=== PATIENT | male | born 1980 | race Caucasian/White ===

== ENCOUNTER 2019-02-22 15:53 | Emergency (ER) | payer SELFPAY ==
[2019-02-22 15:56] VITALS: BP 170/96; PULSE 110; RESP 22; TEMP 36.9; O2SAT 97
--- NOTE | 2019-02-22 16:28 | ED.GENADUL_ITS ---
Discharge Plan Disposition Patient Disposition: HOME Condition: Good Discharge Details Chief Complaint: Sorethroat Clinical Impression: Cough, Tobacco abuse, Elevated blood pressure reading, Obesity Primary Care Provider: Corey Gomez ED Provider: Khurram Bazan Home Meds and New Rx's Prescriptions: Continued aspirin 325 MG tablet 325 mg PO DAILY RF: 0 ibuprofen 800 MG tablet 800 mg PO TID PRN PRNQty: 30 RF: 0 Discharge Instructions Instructions: How to Stop Smoking (ED) Additional Instructions: Please try to cut back and eventually quit smoking as we discussed. Your blood pressure is elevated here and will need to be followed up. Losing weight and exercising may help with your blood pressure. Care management will help you establish a new primary care physician for follow-up. Return to the emergency department if you develop chest pain, shortness of breath, other concerns. Referrals: Care Management [Provider Group] Medical Decision Making Patient with residual cough following URI. He is not febrile. His saturations are normal. His lungs are clear. He does smoke and we discussed cutting back on this because it is probably not helping at all. He does not have primary care. He is obese and is noted to have elevated blood pressure here. Will need to get him primary care and we will have case management work on this. Hopefully get him follow-up in the next month or two. Return to ED for increasing shortness of breath, chest pain, other concerns. HPI General Mode of arrival: ambulatory . Date/Time Provider Initiated Documentation: 02/22/19 16:25 . Limitations to Documentation: no limitations . Information obtained by: patient . HPI Narrative: Patient presents to ED with lingering cough following a URI. Most of his cold symptoms that happened a few weeks ago have resolved. He continues to have a cough as well as hoarseness. He denies fever, congestion, chest pain, shortness of breath. He does smoke. He does not have primary care. He was concerned that the cough was not resolving and came in. Related Data Home Medications Medication Instructions Recorded Confirmed aspirin 325 mg PO DAILY 05/02/13 07/21/16 ibuprofen 800 mg PO TID PRN PRN #30 tablet 10/14/13 02/22/19 Previous Rx's Medication Instructions Recorded ibuprofen 800 mg PO TID PRN PRN #30 tablet 10/14/13 Allergies Allergy/AdvReac Type Severity Reaction Status Date / Time coconut Allergy Severe Anaphylaxsi Uncoded 07/21/16 09:10 s shrimp Allergy Severe Cardiac Uncoded 07/21/16 09:10 Dysrythmia General Stated Complaint: Sorethroat ELIUD: 4 Review of Systems Constitutional Denies chills, Denies fever(s), Denies headache(s), Denies lethargy, Denies malaise, Denies poor appetite and Denies weakness Eyes Denies eye discharge and Denies eye pain ENT Denies otalgia, Denies facial pain, Denies headache(s), Reports hoarseness, Denies nasal congestion, Denies neck pain and Denies sore throat Cardiovascular Denies chest pain, Denies pedal edema, Denies edema and Denies dyspnea Respiratory Denies chest congestion, Reports cough and Denies dyspnea Gastrointestinal Denies abdominal pain, Denies diarrhea, Denies nausea and Denies vomiting Musculoskeletal Denies neck pain Integumentary/Breasts Denies rash Neurologic Denies headache(s), Denies paresthesias and Denies weakness [facility] Medical History Obesity (Chronic) Surgical History S/P appendectomy (Inactive) Social History Smoking/Tobacco Use Status: Current every day Tobacco Type: cigarettes Alcohol Intake: never Drug use: Never Substance use type: does not use Do you feel safe at home: Yes Do you feel safe in your relationship?: Yes Exam Const General: cooperative and comfortable Nutritional Appearance: obese Orientation: alert and oriented x3 HENMD Head: normocephalic and atraumatic Ears: TM's normal bilaterally Face and sinus: normal facial exam Mouth: oropharynx normal and moist mucous membranes Throat: posterior oropharynx normal Neck Neck: trachea midline and supple Resp Effort & Inspection: normal respiratory effort Auscultation: clear to auscultation bilaterally, no rales, no rhonchi and no wheezes Cardio Rate: regular rate Rhythm: regular rhythm Heart Sounds: S1 normal and S2 normal Neuro General: alert, oriented x3, no focal motor deficits and CN's II-XI intact bilaterally Cognition: normal cognition Speech: speech normal Course Vital Signs Temperature 98.4 F 02/22/19 15:56 Pulse 110 H 02/22/19 15:56 Respiratory Rate 22 02/22/19 15:56 Blood Pressure 170/96 H 02/22/19 15:56 Pulse Oximetry 97 02/22/19 15:56 Temperature 98.4 F 02/22/19 15:56 Temperature Source Temporal Artery Scan 02/22/19 15:56 Pulse 110 H 02/22/19 15:56 Respiratory Rate 22 02/22/19 15:56 Respiratory Effort Non-Labored 02/22/19 15:58 Blood Pressure 170/96 H 02/22/19 15:56 Blood Pressure Position Sitting 02/22/19 15:56 Pulse Oximetry 97 02/22/19 15:56 Oxygen Delivery Method Room Air 02/22/19 15:56 Oxygen Flow Rate 0 02/22/19 15:56
--- NOTE | 2019-02-23 11:13 | CMPROGNOTE_ITS ---
Care Management Progress Note 02/23-Dr. Bazan requested assistance with a PCP f/u (used to see Dr. Gomez) f/u in two weeks and to reestablish with [facility] Referral faxed to [facility] this am.
== END 2019-02-22 16:58 | disposition home or self-care (01) ==
LOC: ER 17:11
PROVIDERS: Emergency Provider Emergency Medicine; PCP Internal Medicine
DX: R05 Cough (principal); R03.0 Elevated blood-pressure reading, without diagnosis of hypertension; E66.9 Obesity, unspecified; F17.210 Nicotine dependence, cigarettes, uncomplicated
CPT/HCPCS: 99282

== ENCOUNTER 2019-05-07 00:09 | Emergency (ER) | payer SELFPAY ==
[2019-05-07 00:20] VITALS: BP 178/108; PULSE 119; RESP 20; TEMP 37; O2SAT 95
--- NOTE | 2019-05-07 00:29 | W.ED.GENAD ---
Discharge Plan Disposition Patient Disposition: HOME Condition: Good Discharge Details Chief Complaint: DentalOral Clinical Impression: Pain, dental Primary Care Provider: Argenis,Local ED Provider: Cameron Doherty Home Meds and New Rx's Prescriptions: New amoxicillin-pot clavulanate [Augmentin] 875-125 mg tablet 1 tab PO BID Qty: 14 RF: 0 No Action aspirin 325 MG tablet 325 mg PO DAILY RF: 0 ibuprofen 800 MG tablet 800 mg PO TID PRN PRNQty: 30 RF: 0 Discharge Instructions Instructions: Toothache (ED) Additional Instructions: Please take 1000 mg of Tylenol every 6 hours and up to 800 mg of ibuprofen every 6 hours. Please follow-up closely with your dentist. Take the antibiotic as directed. If you notice any worsening of your symptoms, or any new symptoms such as vomiting, diarrhea, fever, chills, shortness of breath, chest pain, numbness, weakness, or fainting , please return immediately to the emergency department for reevaluation. Please follow up with your primary care provider as soon as possible for reassessment and reevaluation. As always, it was a pleasure participating in your medical care today. Medical Decision Making This is a pleasant 38-year-old male who presents for left lower dental pain for the last few months gradually worsening over the last few days. He has not contacted a dentist. He denies fever or chills. Exam demonstrates notable dental caries, no evidence of periapical abscess. Dental block was performed, complete resolution of symptoms as noted. Patient was given his first dose of Augmentin for suspected pulpitis from mild infection. Recommend outpatient follow-up with dentistry I have extensively reviewed the treatment plan and discharge instructions with the patient. I have addressed all patient concerns at this time. The patient was made aware of what symptoms to monitor for that would warrant a return to the emergency department. Discussed the plan with the patient, they demonstrate verbal understanding and agreement with our assessment and plan at this time. Time out was taken to identify the correct patient, procedure, and site. Risks and benefits were discussed with the patient and consent was obtained. Direct pressure was held over the area prior to the procedure to reduce painful injection. 5 cc?s of Lidocaine 1% and Bupivacaine 0.25% was instilled into the left posterior inferior alveolar/mandibular angle space with a 27 gauge needle.Complete analgesia was obtained. The patient tolerated the procedure. There were no complications. HPI General Date/Time Provider Initiated Documentation: 05/07/19 00:16. HPI Narrative: This is a pleasant 38-year-old male who presents for left lower dental pain. He states that he has been going on for months, is gradually gotten worse over the last few days. He has not yet contacted his dentist. He has taken occasional NSAIDs which is only slightly improved the pain. Orajel does help the pain. He denies any fever, chills, swelling, headache or neck pain. No other complaints modifying factors. Related Data Home Medications Medication Instructions Recorded Confirmed ibuprofen 800 mg PO TID PRN PRN #30 tablet 10/14/13 05/07/19 amoxicillin-pot clavulanate 1 tab PO BID #14 tab 05/07/19 [Augmentin] Previous Rx's Medication Instructions Recorded ibuprofen 800 mg PO TID PRN PRN #30 tablet 10/14/13 amoxicillin-pot clavulanate 1 tab PO BID #14 tab 05/07/19 [Augmentin] Allergies Allergy/AdvReac Type Severity Reaction Status Date / Time coconut Allergy Severe Anaphylaxsi Uncoded 05/07/19 00:30 s shrimp Allergy Severe Cardiac Uncoded 05/07/19 00:30 Dysrythmia General Stated Complaint: DentalOral ELIUD: 4 Review of Systems Review of Systems All systems reviewed & are unremarkable except as noted in HPI and below [facility] Social History Smoking/Tobacco Use Status: Current every day Tobacco Type: cigarettes Alcohol Intake: never Drug use: Never Substance use type: does not use Do you feel safe at home: Yes Do you feel safe in your relationship?: Yes Exam Narrative Exam Narrative: 1.Const: Well-nourished, Well-developed, appearing stated age 2.Eyes: PERRL, no conjunctival injection, and symmetrical lids. 3.ENT: Atraumatic external nose and ears. Moist MM. Neck: Symmetric, trachea midline, No thyromegaly. Notable dental caries throughout, left lower teeth demonstrate no evidence of periapical abscess, or swelling. No evidence of Cruz's angina. 4.CVS: +S1/S2, No murmurs or gallops. Peripheral pulses 2+ and equal in all extremities. Brisk capillary refill in all extremities. 5.RESP: Unlabored respiratory effort. Clear to auscultation bilaterally. No wheezes rales or rhonchi 6.GI: Soft, Nontender/Nondistended, No hepatosplenomegaly. No guarding or rebound. 7.MSK: Normocephalic/Atraumatic, Extremities w/o deformity or ttp No cyanosis or clubbing, Normal movement of all extremities 8.Skin: Warm, Dry. No rashes or lesions. 9.Neuro: valance cutter II-XII grossly intact. Sensation grossly intact, no focal neurologic deficits. 10.Psych: (AAO) x3. Appropriate mood and affect Course Vital Signs Temperature 37 C 05/07/19 00:20 Pulse 119 H 05/07/19 00:20 Respiratory Rate 20 05/07/19 00:20 Blood Pressure 178/108 H 05/07/19 00:20 Pulse Oximetry 95 05/07/19 00:20 Temperature 37 C 05/07/19 00:20 Temperature Source Temporal Artery Scan 05/07/19 00:20 Pulse 119 H 05/07/19 00:20 Respiratory Rate 20 05/07/19 00:20 Respiratory Effort Non-Labored 05/07/19 00:20 Blood Pressure 178/108 H 05/07/19 00:20 Blood Pressure Position Sitting 05/07/19 00:20 Pulse Oximetry 95 05/07/19 00:20 Oxygen Delivery Method Room Air 05/07/19 00:20 Oxygen Flow Rate 0 05/07/19 00:20 Pain Level 10 05/07/19 00:20
--- NOTE | 2019-05-07 00:32 | ED.GENADUL_ITS ---
Discharge Plan Disposition Patient Disposition: HOME Condition: Good Discharge Details Chief Complaint: DentalOral Clinical Impression: Pain, dental Primary Care Provider: Argenis,Local ED Provider: Cameron Doherty Home Meds and New Rx's Prescriptions: New amoxicillin-pot clavulanate [Augmentin] 875-125 mg tablet 1 tab PO BID Qty: 14 RF: 0 No Action aspirin 325 MG tablet 325 mg PO DAILY RF: 0 ibuprofen 800 MG tablet 800 mg PO TID PRN PRNQty: 30 RF: 0 Discharge Instructions Instructions: Toothache (ED) Additional Instructions: Please take 1000 mg of Tylenol every 6 hours and up to 800 mg of ibuprofen every 6 hours. Please follow-up closely with your dentist. Take the antibiotic as directed. If you notice any worsening of your symptoms, or any new symptoms such as vomiting, diarrhea, fever, chills, shortness of breath, chest pain, numbness, weakness, or fainting , please return immediately to the emergency department for reevaluation. Please follow up with your primary care provider as soon as possible for reassessment and reevaluation. As always, it was a pleasure participating in your medical care today. Medical Decision Making This is a pleasant 38-year-old male who presents for left lower dental pain for the last few months gradually worsening over the last few days. He has not contacted a dentist. He denies fever or chills. Exam demonstrates notable dental caries, no evidence of periapical abscess. Dental block was performed, complete resolution of symptoms as noted. Patient was given his first dose of Augmentin for suspected pulpitis from mild infection. Recommend outpatient follow-up with dentistry I have extensively reviewed the treatment plan and discharge instructions with the patient. I have addressed all patient concerns at this time. The patient was made aware of what symptoms to monitor for that would warrant a return to the emergency department. Discussed the plan with the patient, they demonstrate verbal understanding and agreement with our assessment and plan at this time. Time out was taken to identify the correct patient, procedure, and site. Risks and benefits were discussed with the patient and consent was obtained. Direct pressure was held over the area prior to the procedure to reduce painful injection. 5 cc?s of Lidocaine 1% and Bupivacaine 0.25% was instilled into the left posterior inferior alveolar/mandibular angle space with a 27 gauge needle.Complete analgesia was obtained. The patient tolerated the procedure. There were no complications. HPI General Date/Time Provider Initiated Documentation: 05/07/19 00:16 . HPI Narrative: This is a pleasant 38-year-old male who presents for left lower dental pain. He states that he has been going on for months, is gradually gotten worse over the last few days. He has not yet contacted his dentist. He has taken occasional NSAIDs which is only slightly improved the pain. Orajel does help the pain. He denies any fever, chills, swelling, headache or neck pain. No other complaints modifying factors. Related Data Home Medications Medication Instructions Recorded Confirmed ibuprofen 800 mg PO TID PRN PRN #30 tablet 10/14/13 05/07/19 amoxicillin-pot clavulanate 1 tab PO BID #14 tab 05/07/19 [Augmentin] Previous Rx's Medication Instructions Recorded ibuprofen 800 mg PO TID PRN PRN #30 tablet 10/14/13 amoxicillin-pot clavulanate 1 tab PO BID #14 tab 05/07/19 [Augmentin] Allergies Allergy/AdvReac Type Severity Reaction Status Date / Time coconut Allergy Severe Anaphylaxsi Uncoded 05/07/19 00:30 s shrimp Allergy Severe Cardiac Uncoded 05/07/19 00:30 Dysrythmia General Stated Complaint: DentalOral ELIUD: 4 Review of Systems Review of Systems All systems reviewed & are unremarkable except as noted in HPI and below [facility] Social History Smoking/Tobacco Use Status: Current every day Tobacco Type: cigarettes Alcohol Intake: never Drug use: Never Substance use type: does not use Do you feel safe at home: Yes Do you feel safe in your relationship?: Yes Exam Narrative Exam Narrative: 1.Const: Well-nourished, Well-developed, appearing stated age 2.Eyes: PERRL, no conjunctival injection, and symmetrical lids. 3.ENT: Atraumatic external nose and ears. Moist MM. Neck: Symmetric, trachea midline, No thyromegaly. Notable dental caries throughout, left lower teeth demonstrate no evidence of periapical abscess, or swelling. No evidence of L udwig's angina. 4.CVS: +S1/S2, No murmurs or gallops. Peripheral pulses 2+ and equal in all extremities. Brisk capillary refill in all extremities. 5.RESP: Unlabored respiratory effort. Clear to auscultation bilaterally. No wheezes rales or rhonchi 6.GI: Soft, Nontender/Nondistended, No hepatosplenomegaly. No guarding or rebound. 7.MSK: Normocephalic/Atraumatic, Extremities w/o deformity or ttp No cyanosis or clubbing, Normal movement of all extremities 8.Skin: Warm, Dry. No rashes or lesions. 9.Neuro: delimer II-XII grossly intact. Sensation grossly intact, no focal neurologic deficits. 10.Psych: (AAO) x3. Appropriate mood and affect Course Vital Signs Temperature 37 C 05/07/19 00:20 Pulse 119 H 05/07/19 00:20 Respiratory Rate 20 05/07/19 00:20 Blood Pressure 178/108 H 05/07/19 00:20 Pulse Oximetry 95 05/07/19 00:20 Temperature 37 C 05/07/19 00:20 Temperature Source Temporal Artery Scan 05/07/19 00:20 Pulse 119 H 05/07/19 00:20 Respiratory Rate 20 05/07/19 00:20 Respiratory Effort Non-Labored 05/07/19 00:20 Blood Pressure 178/108 H 05/07/19 00:20 Blood Pressure Position Sitting 05/07/19 00:20 Pulse Oximetry 95 05/07/19 00:20 Oxygen Delivery Method Room Air 05/07/19 00:20 Oxygen Flow Rate 0 05/07/19 00:20 Pain Level 10 05/07/19 00:20
[2019-05-07] MEDS: Amoxicillin 875/Clav. 125 TAB PO (00:36)
[2019-05-07 00:55] VITALS: BP 166/96
== END 2019-05-07 00:42 | disposition home or self-care (01) ==
PROVIDERS: Emergency Provider Student in an Organized Health Care Education/Training Program
DX: K08.89 Other specified disorders of teeth and supporting structures (principal)
CPT/HCPCS: 99283

== ENCOUNTER 2020-05-26 08:44 | Emergency (ER) | payer OTHER, SELFPAY ==
[2020-05-26 08:53] VITALS: BP 165/92; PULSE 93; RESP 16; TEMP 36.6; O2SAT 95
--- NOTE | 2020-05-26 09:00 | ED.GENADUL_ITS ---
Discharge Plan Disposition Patient Disposition: HOME Condition: Stable Discharge Details Chief Complaint: Abd Prob Clinical Impression: Umbilical hernia Primary Care Provider: None,None ED Provider: Lulú Cee Home Meds and New Rx's Prescriptions: No Action ibuprofen 800 MG tablet 800 mg PO TID PRN PRNQty: 30 RF: 0 amoxicillin-pot clavulanate [Augmentin] 875-125 mg tablet 1 tab PO BID Qty: 14 RF: 0 Discharge Instructions Instructions: Umbilical Hernia (ED) Additional Instructions: Follow up with primary care provider in 3-5 days. Return to ED sooner if any worsening or concerns. Increase oral fluids. Please take Tylenol or Ibuprofen with food every 4-6 hours as needed for pain and swelling. Your CT showed a reduction in size of the fat-containing umbilical/periumbilical hernia which was previously seen on the CT in July 2013. There is no signs of infection or small bowel obstruction or any other abnormalities. If you continue to have pain and concerns you may follow-up with general surgery as an outpatient in 1 to 2 weeks. Referrals: Xiomara Grace MD [ [facility] STAFF PHYSICIAN] - Medical Decision Making 0906: At this time abdominal work-up ordered including CBC, CMP, lipase, magnesium, urinalysis IV and CT abdomen pelvis with IV contrast ordered to rule out incarcerated hernia versus small bowel obstruction. 0926: Patient transported to CT, labs are largely within normal limits lipase is within normal limits no leukocytosis. Glucose 118. CT ABD Pelvis, w Contrast containing umbilical/paraumbilical hernia(s) previously seen on CT dated 08/29/2013. No evidence of bowel herniation. No fluid or fat stranding within or about the hernia sac. Small right Bochdalek's hernia containing fat. IMPRESSION: 1. Body habitus may limit evaluation. 2. There has been interval reduction in size of the fat containing umbilic al/paraumbilical hernia(s) previously seen on CT dated 08/29/2013. No evidence of bowel herniation. No fluid or fat stranding within or about the hernia sac. 3. Simple renal cysts. Thank you for allowing us to participate in the care of your patient. Dictated and Authenticated by: Abdiel Toussaint MD Plan is to have patient follow-up with general surgery outpatient. No surrounding fat stranding labs are all within normal limits urinalysis all within normal limits. HPI General Mode of arrival: ambulatory . Date/Time Provider Initiated Documentation: 05/26/20 08:44 . Limitations to Documentation: no limitations . Information obtained by: patient . HPI Narrative: 39-year-old male presents to the ED with complaint of abdominal pain which is been intermittent since last ni ght. Patient describes pain as a dull pain. Does have a history of umbilical hernia repair years ago, he states that this feels similar. There is a palpable mass noted on his abdominal exam just above his umbilicus measuring approximately 3 cm x 3 cm. It is mildly tender and non-reducible initially. Also associated with dark stools which he states has been going on for the last month and a half. He denies any other complaints. No nausea vomiting diarrhea, fever, chills, chest pain or shortness of breath. He is a smoker. He does have surgical history of hernia repair and appendectomy. He denies any COVID symptoms. Patient works in a grocery store. Related Data Home Medications Medication Instructions Recorded Confirmed ibuprofen 800 mg PO TID PRN PRN #30 tablet 10/14/13 05/07/19 amoxicillin-pot clavulanate 1 tab PO BID #14 tab 05/07/19 [Augmentin] Previous Rx's Medication Instructions Recorded ibuprofen 800 mg PO TID PRN PRN #30 tablet 10/14/13 amoxicillin-pot clavulanate 1 tab PO BID #14 tab 05/07/19 [Augmentin] Allergies Allergy/AdvReac Type Severity Reaction Status Date / Time amoxicillin [From Augmentin] Allergy Intermediate vomits Verified 05/26/20 08:55 clavulanic acid Allergy Intermediate vomits Verified 05/26/20 08:55 [From Augmentin] coconut Allergy Severe Anaphylaxsi Uncoded 05/26/20 08:55 s shrimp Allergy Severe Cardiac Uncoded 05/26/20 08:55 Dysrythmia General Stated Complaint: Abd Prob ELIUD: 3 Review of Systems Narrative: Constitutional: Negative for weight loss, alert and oriented, well groomed, obese body habitus, appears comfortable. HEENT: Denies trauma, headaches, blurry vision, nasal discharge, sore throat, trouble swallowing. Chest: Denies chest pain, palpitations, irregular rhythm, hypertension. Respiratory: Denies Shortness of breath, cough, hemoptysis. GI: Denies nausea, vomiting, diarrhea, constipation. Positive focal abdominal pain. : Denies dysuria, hematuria, flank pain, rectal bleeding. Reports dark stools x1 month. Neuro: Denies dizziness, blurry vision, weakness, syncope, headache or facial numbness. Hematologic: Denies easy bruising, intolerance to heat or cold, hair loss. [facility] Medical History Obesity (Chronic) Surgical History S/P appendectomy (Inactive) Social History Smoking/Tobacco Use Status: Current every day Tobacco Type: cigarettes Tobacco: How many years used: 21 Alcohol Intake: never Drug use: Never Substance use type: does not use Do you feel safe at home: Yes Do you feel safe in your relationship?: Yes Exam Narrative Exam Narrative: Constitutional: Alert and oriented x3. Appears stated age. Obese body habitus. Head: Normocephalic, no trauma. Eyes: Pupils PERRLA, Red reflex noted, EOM's intact. Eyelids symmetrical without lesions, discharge, or swelling. ENT: Bilateral TM's WNL, External ear normal to inspection, no mastoid TTP, swelling, or erythema, Nasal turbinates WNL, no nasal discharge. Normal dentition, Posterior pharynx WNL, no exudate. Chest: RRR, Normal S1, S2, distal pulses intact. Resp: Lungs clear to auscultation bilaterally, no wheezes, rales, or rhonchi. Abdomen: Obese habitus, soft, nondistended, there is a vertical scar just adjacent to his umbilicus is healed, there is a palpable mass noted just above his umbilicus which is mildly tender to palpation. Nonreducible initially. Musculoskeletal: Normal gait, 5/5 strength to all four extremities. Skin: Does have a red raised dry patchy eczema-like rash noted to his mid forehead. Capillary refill less than 2 sec. Neurologic: Cranial nerves II-XII intact. Alert and oriented x 3. . Hematologic/Lymphatic: No ecchymosis, no lymphadenopathy. Course Vital Signs Vital signs: Vital Signs Temperature 36.6 C 05/26/20 08:53 Pulse 93 H 05/26/20 08:53 Respiratory Rate 16 05/26/20 08:53 Blood Pressure 165/92 H 05/26/20 08:53 Pulse Oximetry 95 05/26/20 08:53 Temperature 36.6 C 05/26/20 08:53 Temperature Source Tympanic 05/26/20 08:53 Pulse 93 H 05/26/20 08:53 Respiratory Rate 16 05/26/20 08:53 Respiratory Effort Non-Labored 05/26/20 08:55 Blood Pressure 165/92 H 05/26/20 08:53 Blood Pressure Position Sitting 05/26/20 08:53 Pulse Oximetry 95 05/26/20 08:53 Oxygen Delivery Method Room Air 05/26/20 08:53 Oxygen Flow Rate 0 05/26/20 08:53 Pain Level 5 05/26/20 08:53
[2020-05-26 09:11] LABS: Abs Immature Grans 0.02 k/cumm (0.0-0.09); Absolute Basophil Count 0.02 k/cumm (0.0-0.2); Absolute Eosinophil Count 0.53 k/cumm (0.0-0.7); Absolute Lymphocyte Count 1.87 k/cumm (1.2-3.4); Absolute Monocyte Count 0.97 k/cumm (0.11-0.7); Absolute Neutrophil Count 5.12 k/cumm (1.2-6.7); Basophils % 0.2; Eosinophils % 6.2; HCT 48.9 % (40.0-50.0); HGB 16.5 g/dL (13.5-17.5); Immature Grans % 0.2 %; Lymphocytes % 21.9; Mean Corp. HGB Concentration 33.7 g/dL (32.0-36.0); Mean Corpuscular Hemoglobin 29.8 pg (27.0-33.0); Mean Corpuscular Volume 88.3 fL (80-95); Mean Platelet Volume 9.4 fL (8.0-11.0); Monocytes % 11.4; Neutrophils % 60.1; Platelet Count 362 x1000/uL (130-400); RBC 5.54 m/cumm (4.50-6.00); RBC Distribution Width 13.9 % (11.8-14.1); White Blood Cell Count 8.53 k/cumm (4.4-10.8)
[2020-05-26] MEDS: Normal Saline Flush 10 ML SYR IVP ×2 (09:15→09:47)
[2020-05-26 09:22] LABS: ALT 50 U/L (16-63); AST 19 U/L (15-37); Albumin 3.6 g/dL (3.4-5.0); Alkaline Phosphatase 79 U/L (46-116); Anion Gap 6.5 mmol/L (3-11); BUN 14 mg/dL (7-18); Bilirubin, Total 0.5 mg/dL (0.2-1.0); CO2 28.5 mmol/L (21.0-32.0); CREATININE 0.87 mg/dL (0.70-1.30); Chloride 102 mmol/L (98-107); Glucose 118 mg/dL (74-106); Lipase 108 U/L (73-393); Magnesium 1.9 mg/dL (1.8-2.4); Potassium 3.7 mmol/L (3.5-5.1); Sodium 137 mmol/L (136-145); Total Protein 7.7 g/dL (6.4-8.2)
--- NOTE | 2020-05-26 09:45 | DI.CT_ITS ---
EXAM: CT ABDOMEN PELVIS W CLINICAL HISTORY: umbilical hernia, R/O obstruction, abd pain TECHNIQUE: Imaging Protocol: Axial computed tomography images with coronal and sagittal reformatted images were created and reviewed CONTRAST MATERIAL: Intravenous: Omnipaque 350 Contrast volume:100 mL Oral: No COMPARISON: CT ABD PELVIS WITH CONTRAST from 08/29/2013 FINDINGS: ABDOMEN: Lung Bases: Normal where visualized. Liver: Fatty infiltration. No measurable mass. Portal, Superior Mesenteric, and Splenic Veins: Unremarkable. Gallbladder and Biliary Tract: No radiodense calculus or dilation. Pancreas: Normal density, no abnormal calcifications or inflammatory process. Spleen: Normal. Adrenals: No masses seen. Kidneys: Normal size, contour and axis. No radiodense stones or obstructive uropathy. Stable bilatera l renal cysts. Abdominal Aorta: Abdominal portion non-dilated. Bowel: No obstruction or bowel wall thickening. No evidence of acute appendicitis. Peritoneal Cavity: No ascites, collection or mesenteric inflammatory response. Lymph Nodes: Within normal limits. Bones: Unremarkable. Soft Tissues: Small fat containing umbilical hernia. There is also a small to moderate-sized fat con taining paraumbilical hernia. No evidence of associated inflammation or bowel herniation. Examinati on is limited due to patient body habitus. PELVIS: Bladder: Symmetric distention, no gross wall thickening. Reproductive Organs: Unremarkable as visualized. Lymph Nodes: Within normal limits. Bones: Within normal limits. IMPRESSION: 1. Limited examination due to patient body habitus. 2. Umbilical and paraumbilical fat containing hernias. No evidence of an associated inflammation or bowel herniation. RADIATION DOSE DELIVERED: 3,260.69mGy.cm Total DLP DATA REPOSITORY: All CT scans at this facility are submitted to the National Radiology Data Registry (NRDR) Dose Index Registry (DIR) with the [employer] (ACR). RADIATION OPTIMIZATION: All CT scans at this facility use at least one of these dose optimization te chniques: automated exposure control; mA and/or kV adjustment per patient size (includes targeted exa ms where dose is matched to clinical indication); or iterative reconstruction.
[2020-05-26] MEDS: Omnipaque 350 MG/ML 100 ML BTL IJ (09:46)
[2020-05-26] MEDS: Normal Saline - Diluent 50 ML VIAL IV (09:47)
[2020-05-26 09:48] LABS: Bilirubin Negative (Negative); Blood Trace-intact (Negative); Clarity Clear (Clear); Glucose Negative (Negative); Ketones Negative (Negative); Leukocyte Esterase Negative (Negative); Nitrite Negative (Negative); Urobilinogen 0.2 EU/dL (Up TO 0.2)
[2020-05-26 10:01] LABS: Bacteria Negative HPF (Negative); C & S Indicated? No; Casts Negative LPF (Negative); Crystals Negative HPF (Negative); Epithelial Cells Negative HPF (Negative); Mucus Trace (Negative); RBC 0-2 HPF (0-2); WBC 0-2 HPF (0-5)
--- NOTE | 2020-05-26 10:05 | DI.VRAD_ITS ---
PROCEDURE INFORMATION: Exam: CT Abdomen And Pelvis With Contrast Exam date and time: 05/26/2020 9:00 AM Age: 39 years old Clinical indication: Other: Umbilical hernia, R/O obstruction, abd pain; Additional info: Patient repositioned and second smaller scan done to try and fit anatomy into scan. Patient habitus limits study TECHNIQUE: Imaging protocol: Computed tomography of the abdomen and pelvis with intravenous contrast. Radiation optimization: All CT scans at this facility use at least one of these dose optimization techniques: automated exposure control; mA and/or kV adjustment per patient size (includes targeted exams where dose is matched to clinical indication); or iterative reconstruction. Contrast material: OMNIPAQUE 350; Contrast volume: 100 ml; Contrast route: INTRAVENOUS (IV); COMPARISON: CT ABD PELVIS WITH CONTRAST 08/29/2013 11:24 AM FINDINGS: Liver: Unremarkable. No mass. Gallbladder and bile ducts: Unremarkable. No calcified stones. No ductal dilation. Pancreas: Mild pancreas atrophy. No main pancreatic duct dilatation. No focal lesion. Spleen: Normal spleen and splenule. Adrenals: Unremarkable. No mass. Kidneys and ureters: No hydronephrosis. There is no evidence of renal or ureteral calcifications. 2.8 cm exophytic right lower pole simple cyst. Approximately 9 mm left upper pole likely simple cyst. (Previously seen on comparison CT in 2012). Stomach and bowel: The stomach is normal. There is no evidence of intestinal obstruction. There is no wall thickening to suggest enteritis or colitis. Appendix: No appendix is specifically identified. There is no evidence of fluid collections or inflammatory stranding in the right lower quadrant. Intraperitoneal space: No free air. No free fluid. Vasculature: Unremarkable. No abdominal aortic aneurysm. Lymph nodes: Unremarkable. No enlarged lymph nodes. Bladder: Unremarkable as visualized. Reproductive: Unremarkable as visualized. Bones/joints: Unremarkable. No acute fracture. Soft tissues: Body habitus may limit evaluation. There has been interval reduction in size of the fat containing umbilical/paraumbilical hernia(s) previously seen on CT dated 08/29/2013. No evidence of bowel herniation. No fluid or fat stranding within or about the hernia sac. Small right Bochdalek's hernia containing fat. IMPRESSION: 1. Body habitus may limit evaluation. 2. There has been interval reduction in size of the fat containing umbilical/paraumbilical hernia(s) previously seen on CT dated 08/29/2013. No evidence of bowel herniation. No fluid or fat stranding within or about the hernia sac. 3. Simple renal cysts. Dictated and Authenticated by: Abdiel Toussaint MD. Ordering:CABRERA Chino MD
[2020-05-26 10:30] VITALS: BP 155/67; PULSE 88; RESP 16; TEMP 36.6; O2SAT 95
--- NOTE | 2020-05-26 10:32 | NUR.NOTE ---
Nursing Note: Referral given to [employer] Business Consultant for establish of PCP.Maddi Merino
--- NOTE | 2020-05-28 09:00 | CMPROGNOTE_ITS ---
- If Service Date Differs Date of service: 05/28/20 Time of Service: 09:00 Care Management Progress Note Charles is seen in the ED on 05/26/2020 for an umbilical hernia. At the request of ED provider, MARIANN coordinates a referral to MAXIM Dumont, [facility], of [facility], to assist patient in establishing care with a local PCP.
== END 2020-05-26 10:30 | disposition home or self-care (01) ==
PROVIDERS: Emergency Provider Registered Nurse Emergency
DX: K42.9 Umbilical hernia without obstruction or gangrene (principal)
CPT/HCPCS: 80053; 83690; 99284; 74177; 81003; 81015; 83735; 85025; J3490

== ENCOUNTER 2020-09-22 09:23 | Emergency (ER) | payer SELFPAY ==
[2020-09-22] VITALS (17 sets, daily range): BP systolic 128–160; BP diastolic 68–110; PULSE 83–106; RESP 16–27; TEMP 37.1; O2SAT 94–97
--- NOTE | 2020-09-22 09:26 | W.ED.GENAD ---
Discharge Plan Disposition Patient Disposition: HOME Condition: Improving Discharge Details Clinical Impression: Left-sided chest wall pain Primary Care Provider: None,None ED Provider: Nereida Barrera Home Meds and New Rx's Prescriptions: New methocarbamol 500 mg tablet 500 mg PO Q6H PRN (Reason: muscle spasm) Qty: 14 RF: 0 lidocaine [Lidoderm] 5 % adhesive patch,medicated 1 patch TP DAILY PRN (Reason: pain) Qty: 15 RF: 0 naproxen [Naprosyn] 500 mg tablet 500 mg PO BID PRN (Reason: pain) Qty: 14 RF: 0 Discharge Instructions Instructions: Chest Wall Pain (ED) Additional Instructions: Alternate ice and heat to the affected area(s) several times daily for 20 minutes at a time. Take the naproxen, methocarbamol and use the Lidoderm patch as needed and directed for pain. You will receive a call from care management regarding a follow-up appointment with the primary care doctor to establish care and for reassessment of your left chest wall pain. Return immediately to the emergency department if you develop any worsening or new concerning symptoms. Discharge Data Discharge Date/Time-TO BE ENTERED AT DEPARTURE: 09/22/20 11:56 Discharge Physician: Nereida Barrera Medical Decision Making 0935 -- 40-year-old male with a history of morbid obesity and appendectomy who presents with left side pain for the past few days that is worse with movement and deep breath. Patient is morbidly obese. BP hypertensive. He is afebrile and appears nontoxic. He has tenderness to palpation of the left chest wall and left upper quadrant near left chest wall. Remainder of abdomen nontender. Lungs clear. Suspect most likely chest wall strain, but considering patient's habitus and left upper quadrant tenderness, will obtain screening labs, EKG and CT chest abdomen and pelvis. Will place Lidoderm patch, give Toradol and Valium and reassess. EKG notes a rate of 100, sinus with [address] elevation in 2, 3 and aVF which is seen in previous EKG and appears consistent with benign early repolarization, not STEMI. 1130 --labs and imaging reviewed and unremarkable. Normal white blood cell count, coagulation studies, lipase, troponin. CT chest abdomen and pelvis of questionable inflammation around the pancreas, but no other acute findings. Doubt acute pancreatitis at this time as his lipase was within normal limits, with normal white blood cell count and no complaint of abdominal pain or vomiting. Patient reassessed and he feels much better is good to go home. He is placed on care management list to arrange for follow-up appoint with the PCP. Usual and customary return precautions given prior to discharge. Medical Records Medical records reviewed: Yes I reviewed the patient's medical records. Imaging Data Radiologic Study: Radiologist's impression: CT Angiography Chest With Contrast Exam date and time: 09/22/2020 10:41 AM Age: 40 years old Clinical indication: Other: L lateral chest/ luq abd pain, R/O pancreatitis; Prior surgery; Surgery date: 6+ months; Surgery type: S/P hernia repair TECHNIQUE: Imaging protocol: Computed tomographic angiography of the chest with intravenous contrast. 3D rendering (Not supervised by radiologist): MIP and/or 3D reconstructed images were created by the technologist. Radiation optimization: All CT scans at this facility use at least one of these dose optimization techniques: automated exposure control; mA and/or kV adjustment per patient size (includes targeted exams where dose is matched to clinical indication); or iterative reconstruction. Contrast material: OMNIPAQUE 350; Contrast route: INTRAVENOUS (IV); COMPARISON: CT ABDOMEN PELVIS W 05/26/2020 9:30 AM FINDINGS: Pulmonary arteries: No evidence of pulmonary embolus to the segmental level. Aorta: No aneurysm of the aorta. No dissection of the aorta. Lungs: Mild opacities in the left lower lobe may represent atelectasis or pneumonia. Pleural space: Unremarkable. No pneumothorax. No pleural effusion. Heart: Unremarkable. No cardiomegaly. No pericardial effusion. Lymph nodes: Unremarkable. No enlarged lymph nodes. Bones/joints: Unremarkable. No acute fracture. Soft tissues: 3.2 cm cystic structure in the subcutaneous fat posteriorly IMPRESSION: 1. No evidence of pulmonary embolus to the segmental level. 2. No aneurysm of the aorta. 3. No dissection of the aorta. 4. Mild opacities in the left lower lobe may represent atelectasis or pneumonia. CT Abdomen And Pelvis With Contrast Exam date and time: 09/22/2020 10:41 AM Age: 40 years old Clinical indication: Other: L lateral chest/ luq abd pain, R/O pancreatitis; Prior surgery; Surgery date: 6+ months; Surgery type: S/P hernia repair TECHNIQUE: Imaging protocol: Computed tomography of the abdomen and pelvis with intravenous contrast. Radiation optimization: All CT scans at this facility use at least one of these dose optimization techniques: automated exposure control; mA and/or kV adjustment per patient size (includes targeted exams where dose is matched to clinical indication); or iterative reconstruction. Contrast material: OMNIPAQUE 350; Contrast volume: 100 ml; Contrast route: INTRAVENOUS (IV); COMPARISON: CT ABDOMEN PELVIS W 05/26/2020 9:30 AM FINDINGS: Liver: Normal. No mass. Gallbladder and bile ducts: Normal. No calcified stones. No ductal dilation. Pancreas: Inflammatory changes around the pancreas may represent pancreatitis. Spleen: Normal. No splenomegaly. Adrenals: Normal. No mass. Kidneys and ureters: Normal. No hydronephrosis. Stomach and bowel: Unremarkable. No obstruction. No mucosal thickening. Appendix: No evidence of appendicitis. Intraperitoneal space: Unremarkable. No free air. No significant fluid collection. Vasculature: No aneurysm of the aorta. No dissection of the aorta. Lymph nodes: Unremarkable. No enlarged lymph nodes. Urinary bladder: Unremarkable as visualized. Reproductive: Unremarkable as visualized. Bones/joints: Unremarkable. No acute fracture. Soft tissues: Unremarkable. IMPRESSION: 1. No aneurysm of the aorta. 2. No dissection of the aorta. 3. Inflammatory changes around the pancreas may represent pancreatitis. Lab Data Lab results reviewed: Yes I reviewed the patient's lab results. Labs: Laboratory Tests Range/Units 09/22/20 09/22/20 09/22/20 10:00 10:00 10:00 WBC (4.4-10.8) 10^3/uL 8.60 RBC (4.36-5.78) 10^6/uL 5.77 Hgb (13.5-17.5) g/dL 17.1 Hct (40.0-50.0) % 51.7 H MCV (80-95) fL 89.6 MCH (27.0-33.0) pg 29.6 MCHC (32.0-36.0) % 33.1 RDW (11.8-14.1) % 13.3 Plt Count (130-400) 10^3/uL 357 MPV (8.0-11.0) fL 9.3 Immature Gran % 0.3 Neutrophils % 60.9 Lymphocytes % 20.9 Monocytes % 11.2 Eosinophils % 6.0 Basophils % 0.7 Nucleated RBC % % 0 Absolute Neutrophils (1.2-6.7) 10^3/uL 5.23 Absolute Lymphocytes (1.2-3.4) 10^3/uL 1.80 Absolute Monocytes (0.1-0.8) 10^3/uL 0.96 H Absolute Eosinophils (0.0-0.7) 10^3/uL 0.52 Absolute Basophils (0.0-0.2) 10^3/uL 0.06 PT (9.3-11.0) sec 10.1 INR (0.9-1.1) 1.0 APTT (21.0-31.4) sec 27.0 Sodium (136-145) mmol/L 138 Potassium (3.5-5.1) mmol/L 3.8 Chloride (98-107) mmol/L 104 Carbon Dioxide (21.0-32.0) mmol/L 28.4 Anion Gap (3-11) mmol/L 5.6 BUN (7-18) mg/dL 9 Creatinine (0.70-1.30) mg/dL 0.80 Estimated GFR/1.73 m2 (mL/min/1.73m2) >= 60.00 Glucose (74-106) mg/dL 98 Calcium (8.5-10.1) mg/dL 8.6 Magnesium (1.8-2.4) mg/dL 2.2 Total Bilirubin (0.2-1.0) mg/dL 0.6 AST (15-37) U/L 18 ALT (16-63) U/L 53 Alkaline Phosphatase (46-116) U/L 83 Troponin I (<0.06) ng/mL < 0.05 Total Protein (6.4-8.2) g/dL 7.7 Albumin (3.4-5.0) g/dL 3.5 Lipase (73-393) U/L 80 HPI General Mode of arrival: ambulatory. Date/Time Provider Initiated Documentation: 09/22/20 09:25. Limitations to Documentation: no limitations. Information obtained by: patient. HPI Narrative: Patient is a 40-year-old male with a history of morbid obesity and appendectomy who presents for left lateral chest and side pain for the past 2 days. Patient states the pain is worse with movement and deep breath. He denies any known injury but states he has a lot of blankets on his bed and may have pulled something while turning. He states he took ibuprofen and Tylenol for pain yesterday without significant relief. He states the pain is currently 10/10. He has not taken anything for pain this morning. Patient also admits to small bowel movement yesterday which is unusual for him. He denies any fever, nausea, vomiting, diarrhea, urinary symptoms, chest pain or shortness of breath. He denies any recent travel, recent known sick contacts or recent antibiotics or hospital admissions. Related Data Home Medications Medication Instructions Recorded Confirmed lidocaine [Lidoderm] 1 patch TP DAILY PRN #15 each 09/22/20 methocarbamol 500 mg PO Q6H PRN #14 tab 09/22/20 naproxen [Naprosyn] 500 mg PO BID PRN #14 tab 09/22/20 Previous Rx's Medication Instructions Recorded lidocaine [Lidoderm] 1 patch TP DAILY PRN #15 each 09/22/20 methocarbamol 500 mg PO Q6H PRN #14 tab 09/22/20 naproxen [Naprosyn] 500 mg PO BID PRN #14 tab 09/22/20 Allergies Allergy/AdvReac Type Severity Reaction Status Date / Time amoxicillin [From Augmentin] Allergy Intermediate vomits Verified 05/26/20 08:55 clavulanic acid Allergy Intermediate vomits Verified 05/26/20 08:55 [From Augmentin] coconut Allergy Severe Anaphylaxsi Uncoded 05/26/20 08:55 s shrimp Allergy Severe Cardiac Uncoded 05/26/20 08:55 Dysrythmia General ELIUD: 3 Review of Systems All systems reviewed & are unremarkable except as noted in HPI and below Constitutional Constitutional: Reports as per HPI, Denies chills and Denies fever(s) Eyes Eyes: Denies blurry vision ENT Ears, Nose, Mouth, and Throat: Denies dizziness, Denies sore throat and Denies throat swelling Cardiovascular Cardiovascular: Denies chest pain and Denies dyspnea Respiratory Respiratory: Denies cough and Denies dyspnea Gastrointestinal Gastrointestinal: Denies abdominal pain, Denies diarrhea and Denies vomiting Genitourinary Genitourinary: Denies hematuria and Denies dysuria Musculoskeletal Musculoskeletal: Denies back pain, Denies numbness and Reports other (L side pain) Integumentary/Breasts Skin/Breast: Denies lesions and Denies rash Neurologic Neurologic: Denies dizziness, Denies localized weakness and Denies numbness Allergic/Immunologic Allergic/Immunologic: Denies throat swelling [facility] Medical History (Updated 09/22/20 @ 11:41 by Nereida Barrera DO) Obesity Surgical History (Updated 09/22/20 @ 10:00 by Nereida Barrera DO) History of ankle surgery S/P appendectomy Social History Smoking/Tobacco Use Status: Current every day Tobacco Type: cigarettes Tobacco: How many years used: 21 Alcohol Intake: current Alcohol Intake frequency: holidays/special occasions only Drug use: Rarely Substance use type: marijuana Do you feel safe at home: Yes Do you feel safe in your relationship?: Yes Exam Const General: cooperative and no acute distress Nutritional Appearance: obese morbidly obese Orientation: alert, awake and oriented x3 HENMT Head: normal to inspection Face and sinus: normal facial exam Eyes General: appearance normal, both eyes and all related structures EOM: EOM intact bilaterally Neck Neck: normal visual inspection and No submandibular swelling Lymphatic: no lymphadenopathy noted Chest Chest: normal inspection of the chest Chest/axillae images: 1. Tenderness to palpation L lateral inferior ribs. Resp Effort & Inspection: normal respiratory effort and able to speak in complete sentences Auscultation: clear to auscultation bilaterally Cardio Rate: regular rate Rhythm: regular rhythm GI Inspection: normal to inspection and obesity Palpation: soft, not firm, not rigid and tender in the LUQ (near L lateral inferior chest wall ) Auscultation: hypoactive bowel sounds Skin General skin exam: no rashes or lesions noted Neuro General: patient alert, patient awake and patient oriented x3 Cognition: normal cognition Speech: speech normal Motor: muscle tone normal throughout Sensory Exam: no sensory deficits noted Extrem General: normal to inspection, full ROM, capillary refill normal, no calf tenderness bilaterally and no edema Psych Appearance: grossly normal Mental Status: mental status grossly normal Speech and Movement: speech and movement normal Affect: normal affect
--- NOTE | 2020-09-22 09:30 | RT.EKG_ITS ---
APPROVED REPORT Exam: Resting ECG Patient Location: E HR:100 bpm ECG Measurements Heart Rate 100 AXIS SC 213 P 59 QRSd 94 QRS 41 QT 362 T 56 QTc 469 Conclusion Sinus tachycardia...rate> 99 Prolonged SC interval...SC >205, V-rate 91-120 ST elev, probable normal early repol pattern...ST elevation, age<55. Early repolarization, similar to previous EKG 2013. No STEMI. I have reviewed and interpreted ECG and agree with software generated interpretation.
--- NOTE | 2020-09-22 09:45 | DI.CT_ITS ---
EXAM: CT CHEST PE ABD PELVIS W TECHNIQUE: CT examination of the chest abdomen and pelvis was performed with bolus infusion of 100 c c of Omnipaque 350. Axial CT angiography was performed with multi-slice acquisition and multi-planar and/or 3D reconstruc tions. COMPARISON: CT CHEST FOR PULMONARY EMBOLUS from 05/02/[address] ABDOMEN PELVIS W from 05/26/2020 FINDINGS: This examination was limited due to the patient's body habitus. The lungs are clear. No pleural effu gwendolyn. No evidence of pulmonary embolic disease. No thoracic aortic dissection or aneurysm. Major bran ches of the thoracic aorta appear normal. No pleural effusion. No mediastinal or hilar adenopathy. T racheobronchial tree appears intact. No focal hepatic or renal abnormality seen presumed right renal cyst again noted.. Gallbladder and b ile ducts are CT normal. Pancreas is unremarkable. There is generalized increased attenuation in the central abdomen and retroperitoneum in a pattern suggestive of artifact. No gross mesenteric edema. Spleen shows unremarkable early arterial phase pattern of enhancement. No abdominal aortic aneurysm or dissection. Major branches of the abdominal aorta appear normal. No a bdominal or pelvic adenopathy. Normal appendix. No significant abdominal wall hernia. No focal bowel pathology. IMPRESSION: No evidence of acute abnormality of the chest, abdomen or pelvis. Limited examination due to the pat ient's body habitus. RADIATION DOSE DELIVERED: 3,185.96mGy.cm Total DLP 3,185.96mGy.cm Total DLP DATA REPOSITORY: All CT scans at this facility are submitted to the National Radiology Data Registry (NRDR) Dose Index Registry (DIR) with the [employer] (ACR). RADIATION OPTIMIZATION: All CT scans at this facility use at least one of these dose optimization te chniques: automated exposure control; mA and/or kV adjustment per patient size (includes targeted exa ms where dose is matched to clinical indication); or iterative reconstruction.
[2020-09-22 10:06] LABS: Abs Immature Grans 0.03 10^3/uL (0.0-0.06); Absolute Basophil Count 0.06 10^3/uL (0.0-0.2); Absolute Eosinophil Count 0.52 10^3/uL (0.0-0.7); Absolute Monocyte Count 0.96 10^3/uL (0.1-0.8); Absolute Neutrophil Count 5.23 10^3/uL (1.2-6.7); Basophils % 0.7; HCT 51.7 % (40.0-50.0); HGB 17.1 g/dL (13.5-17.5); Immature Grans % 0.3; Lymphocytes % 20.9; MCH 29.6 pg (27.0-33.0); MCHC 33.1 % (32.0-36.0); MCV 89.6 fL (80-95); MPV 9.3 fL (8.0-11.0); Monocytes % 11.2; Neutrophils % 60.9; Nucleated RBC 0 %; Platelet Count 357 10^3/uL (130-400); RBC 5.77 10^6/uL (4.36-5.78); RDW 13.3 % (11.8-14.1); RDW-SD 43.3 fL
[2020-09-22 10:20] LABS: Prothrombin Time 10.1 sec (9.3-11.0)
[2020-09-22] MEDS: Normal Saline 1,000 ML 1000 ML IV (10:21)
[2020-09-22] MEDS: Lidocaine 5% Patch 1 PATCH TP (10:22)
[2020-09-22 10:23] LABS: ALT 53 U/L (16-63); AST 18 U/L (15-37); Albumin 3.5 g/dL (3.4-5.0); Alkaline Phosphatase 83 U/L (46-116); Anion Gap 5.6 mmol/L (3-11); BUN 9 mg/dL (7-18); Bilirubin, Total 0.6 mg/dL (0.2-1.0); CO2 28.4 mmol/L (21.0-32.0); Calcium 8.6 mg/dL (8.5-10.1); Chloride 104 mmol/L (98-107); Glucose 98 mg/dL (74-106); Lipase 80 U/L (73-393); Magnesium 2.2 mg/dL (1.8-2.4); Potassium 3.8 mmol/L (3.5-5.1); Sodium 138 mmol/L (136-145); Total Protein 7.7 g/dL (6.4-8.2)
[2020-09-22] MEDS: Ketorolac 30 MG/ML VIAL IVP (10:23)
[2020-09-22] MEDS: Normal Saline Flush 10 ML SYR IVP (10:24)
[2020-09-22 10:25] LABS: Troponin I < 0.05 ng/mL (<0.06)
[2020-09-22] MEDS: Omnipaque 350 MG/ML 100 ML BTL 88 ML IJ ×2 (10:39→10:43)
[2020-09-22] MEDS: Normal Saline - Diluent 50 ML VIAL IV (10:40)
--- NOTE | 2020-09-22 11:12 | DI.VRAD_ITS ---
PROCEDURE INFORMATION: Exam: CT Angiography Chest With Contrast Exam date and time: 09/22/2020 10:41 AM Age: 40 years old Clinical indication: Other: L lateral chest/ luq abd pain, R/O pancreatitis; Prior surgery; Surgery date: 6+ months; Surgery type: S/P hernia repair TECHNIQUE: Imaging protocol: Computed tomographic angiography of the chest with intravenous contrast. 3D rendering (Not supervised by radiologist): MIP and/or 3D reconstructed images were created by the technologist. Radiation optimization: All CT scans at this facility use at least one of these dose optimization techniques: automated exposure control; mA and/or kV adjustment per patient size (includes targeted exams where dose is matched to clinical indication); or iterative reconstruction. Contrast material: OMNIPAQUE 350; Contrast route: INTRAVENOUS (IV); COMPARISON: CT ABDOMEN PELVIS W 05/26/2020 9:30 AM FINDINGS: Pulmonary arteries: No evidence of pulmonary embolus to the segmental level. Aorta: No aneurysm of the aorta. No dissection of the aorta. Lungs: Mild opacities in the left lower lobe may represent atelectasis or pneumonia. Pleural space: Unremarkable. No pneumothorax. No pleural effusion. Heart: Unremarkable. No cardiomegaly. No pericardial effusion. Lymph nodes: Unremarkable. No enlarged lymph nodes. Bones/joints: Unremarkable. No acute fracture. Soft tissues: 3.2 cm cystic structure in the subcutaneous fat posteriorly IMPRESSION: 1. No evidence of pulmonary embolus to the segmental level. 2. No aneurysm of the aorta. 3. No dissection of the aorta. 4. Mild opacities in the left lower lobe may represent atelectasis or pneumonia. PROCEDURE INFORMATION: Exam: CT Abdomen And Pelvis With Contrast Exam date and time: 09/22/2020 10:41 AM Age: 40 years old Clinical indication: Other: L lateral chest/ luq abd pain, R/O pancreatitis; Prior surgery; Surgery date: 6+ months; Surgery type: S/P hernia repair TECHNIQUE: Imaging protocol: Computed tomography of the abdomen and pelvis with intravenous contrast. Radiation optimization: All CT scans at this facility use at least one of these dose optimization techniques: automated exposure control; mA and/or kV adjustment per patient size (includes targeted exams where dose is matched to clinical indication); or iterative reconstruction. Contrast material: OMNIPAQUE 350; Contrast volume: 100 ml; Contrast route: INTRAVENOUS (IV); COMPARISON: CT ABDOMEN PELVIS W 05/26/2020 9:30 AM FINDINGS: Liver: Normal. No mass. Gallbladder and bile ducts: Normal. No calcified stones. No ductal dilation. Pancreas: Inflammatory changes around the pancreas may represent pancreatitis. Spleen: Normal. No splenomegaly. Adrenals: Normal. No mass. Kidneys and ureters: Normal. No hydronephrosis. Stomach and bowel: Unremarkable. No obstruction. No mucosal thickening. Appendix: No evidence of appendicitis. Intraperitoneal space: Unremarkable. No free air. No significant fluid collection. Vasculature: No aneurysm of the aorta. No dissection of the aorta. Lymph nodes: Unremarkable. No enlarged lymph nodes. Urinary bladder: Unremarkable as visualized. Reproductive: Unremarkable as visualized. Bones/joints: Unremarkable. No acute fracture. Soft tissues: Unremarkable. IMPRESSION: 1. No aneurysm of the aorta. 2. No dissection of the aorta. 3. Inflammatory changes around the pancreas may represent pancreatitis. Dictated and Authenticated by: Odilon Box MD. Ordering:ISRAEL Padron MD
--- NOTE | 2020-09-22 11:44 | NUR.NOTE ---
Referral to Care Management to establish PCPNursing Note:
--- NOTE | 2020-09-25 14:41 | CMPROGNOTE_ITS ---
- If Service Date Differs Date of service: 09/25/20 Time of Service: 14:41 Care Management Progress Note Charles is seen in the ED on 09/22/20 for left-sided pain. At the request of Dr. Barrera, ED provider, MARIANN coordinates a referral to Kaila Barnett np, on- call provider, of [facility] to assist Charles in obtaining a follow up appointment and in establishing care with a PCP.
== END 2020-09-22 11:56 | disposition home or self-care (01) ==
PROVIDERS: Emergency Provider Physician Assistant
DX: R07.81 Pleurodynia (principal); R10.12 Left upper quadrant pain; E66.01 Morbid (severe) obesity due to excess calories; Z68.43 Body mass index [BMI] 50.0-59.9, adult
CPT/HCPCS: 36415; 71275; 74177; 80053; 83690; 93005; 96361; 96374; 99285; 83735; 84484; 85025; 85610; 85730; 93010; J1885; J3490

== ENCOUNTER 2022-06-16 09:18 | Emergency (ER) | payer MEDICAID, SELFPAY ==
[2022-06-16 09:43] VITALS: BP 173/99; PULSE 113; RESP 16; TEMP 37.3; O2SAT 96
--- NOTE | 2022-06-16 10:00 | DI.US_ITS ---
Exam(s) US EXTREMITY VENOUS BI EXAM: US EXTREMITY VENOUS BI CLINICAL HISTORY: b/l LE swelling. TECHNIQUE: Bilateral lower extremity venous ultrasound performed using grayscale, color-flow, and sp ectral Doppler analysis. COMPARISON: No exams were available for comparison FINDINGS: Exam is limited by patient body habitus and edema. The bilateral common femoral, femoral and popliteal veins demonstrate normal compressibility, augment ation, and color Doppler. The distal femoral vein with normal seen. The mid posterior tibial veins were not able to be visualized. IMPRESSION: Right: Negative for DVT. Distal femoral vein and posterior tibial vein not well seen. Edema Left: Negative for DVT. Distal femoral vein and posterior tibial vein not well seen. Edema DATA REPOSITORY:
--- NOTE | 2022-06-16 10:00 | RT.EKG_ITS ---
APPROVED REPORT Exam: Resting ECG Reason for Exam: tachycardia Patient Location: E HR:103 bpm ECG Measurements Heart Rate 103 AXIS AZ 199 P 60 QRSd 98 QRS 35 QT 348 T 62 QTc 457 Conclusion Sinus tachycardia...rate> 99 Borderline prolonged AZ interval...AZ >197, V-rate 91-120 ST elev, probable normal early repol pattern...ST elevation, age<55 sinus tachycardia at 103, normal axis, no STEMI
[2022-06-16 10:40] LABS: Abs Immature Grans 0.02 10^3/uL (0.0-0.06); Absolute Basophil Count 0.06 10^3/uL (0.0-0.2); Absolute Eosinophil Count 0.53 10^3/uL (0.0-0.7); Absolute Lymphocyte Count 1.88 10^3/uL (1.2-3.4); Absolute Monocyte Count 1.05 10^3/uL (0.1-0.8); Absolute Neutrophil Count 5.51 10^3/uL (1.2-6.7); Basophils % 0.7; Eosinophils % 5.9; HCT 46.9 % (40.0-50.0); HGB 15.7 g/dL (13.5-17.5); Immature Grans % 0.2; Lymphocytes % 20.8; MCH 29.5 pg (27.0-33.0); MCHC 33.5 % (32.0-36.0); MCV 88 fL (80-95); Monocytes % 11.6; Neutrophils % 60.8; Platelet Count 286 10^3/uL (130-400); RBC 5.33 10^6/uL (4.36-5.78); RDW 13.5 % (11.8-14.1); RDW-SD 43.3 fL; WBC 9.05 10^3/uL (4.4-10.8)
[2022-06-16 11:04] LABS: ALT 53 U/L (16-63); AST 25 U/L (15-37); Albumin 3.5 g/dL (3.4-5.0); Alkaline Phosphatase 72 U/L (46-116); Anion Gap 5.8 mmol/L (3-11); BUN 12 mg/dL (7-18); Bilirubin, Total 0.6 mg/dL (0.2-1.0); CO2 31.2 mmol/L (21.0-32.0); CREATININE 0.8 mg/dL (0.70-1.30); Calcium 8.9 mg/dL (8.5-10.1); Chloride 101 mmol/L (98-107); Glucose 95 mg/dL (74-106); NT-proBNP 20 pg/mL (<300); Potassium 3.6 mmol/L (3.5-5.1); Sodium 138 mmol/L (136-145); TSH (W/Ref FT4) 3.63 uIU/mL (0.36-3.74); Total Protein 8.2 g/dL (6.4-8.2)
--- NOTE | 2022-06-16 11:07 | W.ED.GENAD ---
Discharge Plan Disposition Patient Disposition: HOME Condition: Stable Discharge Details Clinical Impression: Swelling of both lower extremities, Cellulitis Primary Care Provider: None,None ED Provider: Verónica Jeff Home Meds and New Rx's Prescriptions: New cephalexin 500 mg capsule 500 mg PO QID 10 Days Qty: 40 0RF (DME) sol.stocking,knee,reg,xlrg Misc See Rx Instructions .Route Qty: 12 0RF Rx Instructions: As directed No Action hydrochlorothiazide 25 mg tablet 25 mg PO DAILY Qty: 90 0RF Discharge Instructions Instructions: Cellulitis (ED), Edema (ED) Additional Instructions: Please return immediately to the emergency department if you develop any new or worsening symptoms, if your condition does not improve as expected, or if you become otherwise concerned. It is extremely important that you call soon as possible to make an appointment to be seen in follow-up for this visit by your primary care doctor. Discharge Data Discharge Date/Time-TO BE ENTERED AT DEPARTURE: 06/16/22 13:18 Medical Decision Making Charles Blake is a 41-year-old man with history of sleep apnea presenting to the emergency department with bilateral leg swelling. Patient reports that over the past 2 weeks he has noticed swelling in both of his feet that has progressed to bilateral lower legs. Patient reports that he will intermittently have swelling of his feet and of his lower legs, however this has progressed more than typical for him. Patient reports that he has a new redness in the right lower leg, this has occurred with swelling in the past but seems worse than typical for him with this episode. He denies any other recent changes or symptoms, other than that his sleep apnea machine stopped working 1 month ago and he has not been using it for the past month. Patient also reports that he has been sitting more than usual over the past month or 2. He reports mild pain/tightness in both of his lower legs/feet. Denies any other pain, fever, shortness of breath, cough, vomiting, diarrhea, other rash, other swelling. On exam patient is well and nontoxic-appearing. Bilateral lower extremity edema and erythema to the knees worse on the right, no crepitus, full painless range of motion toes/ankles/knees. Concern for venous insufficiency/dependent edema, DVT, cellulitis of the right lower leg, other. Exam/history at this time is not consistent with necrotizing fasciitis, sepsis, pulmonary embolism, ACS, acute CHF. Plan for EKG, IV placement, screening labs. DP pulses dopplerable both feet bilaterally. Labs reviewed, WBC 9.05, hemoglobin 15.7, D-dimer 869, creatinine 0.8. Plan for lower extremity ultrasound to rule out DVT. Ultrasounds negative for DVT per radiology. Plan for Keflex, compression stockings, outpatient follow-up with PCP. Care management involved to facilitate outpatient follow-up. Per care management, patient electing to see PCPs office that cannot accommodate him for recheck this week, their office request recheck at [facility] with PCP appointment next week. This was relayed to patient and discussed with him at length. I had a discussion with Patient regarding return to emergency department precautions, home care, and importance of outpatient follow-up. Pt verbalizes understanding of the plan and is amenable. Patient discharged to home with clear plan for outpatient follow-up. All questions were answered. Disposition decision was made weighing the risks and benefits of hospitalization versus outpatient treatment, the risk for further decompensation, and the patient's wishes. The documentation in this chart was dictated using [employer] dictation software. Please excuse any dictation errors. Medical Records Medical records reviewed: Yes I reviewed the patient's medical records. Imaging Data Radiologic Study: Attestation: I personally reviewed and interpreted this imaging study as follows: Radiologist's impression: EXAM:? US EXTREMITY VENOUS BI CLINICAL HISTORY: ? b/l LE swelling.? TECHNIQUE:? Bilateral lower extremity venous ultrasound performed using grayscale, color-flow, and spectral Doppler analysis. COMPARISON:? No exams were available for comparison FINDINGS: Exam is limited by patient body habitus and edema.? The bilateral common femoral, femoral and popliteal veins demonstrate normal compressibility, augmentation, and color Doppler.? The distal femoral vein with normal seen.? The mid posterior tibial veins were not able to be visualized. IMPRESSION: Right: Negative for DVT.? Distal femoral vein and posterior tibial vein not well seen.? Edema Left: Negative for DVT.? Distal femoral vein and posterior tibial vein not well seen.? Edema Lab Data Lab results reviewed: Yes I reviewed the patient's lab results. Labs: Laboratory Tests Range/Units 06/16/22 06/16/22 10:35 10:35 WBC (4.4-10.8) 10^3/uL 9.05 RBC (4.36-5.78) 10^6/uL 5.33 Hgb (13.5-17.5) g/dL 15.7 Hct (40.0-50.0) % 46.9 MCV (80-95) fL 88 MCH (27.0-33.0) pg 29.5 MCHC (32.0-36.0) % 33.5 RDW (11.8-14.1) % 13.5 Plt Count (130-400) 10^3/uL 286 MPV (8.0-11.0) fL 10.0 Immature Gran % 0.2 Neutrophils % 60.8 Lymphocytes % 20.8 Monocytes % 11.6 Eosinophils % 5.9 Basophils % 0.7 Nucleated RBC % (0.0-0.3) % 0.0 Absolute Neutrophils (1.2-6.7) 10^3/uL 5.51 Absolute Lymphocytes (1.2-3.4) 10^3/uL 1.88 Absolute Monocytes (0.1-0.8) 10^3/uL 1.05 H Absolute Eosinophils (0.0-0.7) 10^3/uL 0.53 Absolute Basophils (0.0-0.2) 10^3/uL 0.06 Sodium (136-145) mmol/L 138 Potassium (3.5-5.1) mmol/L 3.6 Chloride (98-107) mmol/L 101 Carbon Dioxide (21.0-32.0) mmol/L 31.2 Anion Gap (3-11) mmol/L 5.8 BUN (7-18) mg/dL 12 Creatinine (0.70-1.30) mg/dL 0.8 Estimated GFR/1.73 m2 (mL/min/1.73m2) >= 60.00 Glucose (74-106) mg/dL 95 Calcium (8.5-10.1) mg/dL 8.9 Total Bilirubin (0.2-1.0) mg/dL 0.6 AST (15-37) U/L 25 ALT (16-63) U/L 53 Alkaline Phosphatase (46-116) U/L 72 NT-Pro-B Natriuret Pep (<300) pg/mL 20 Total Protein (6.4-8.2) g/dL 8.2 Albumin (3.4-5.0) g/dL 3.5 TSH (0.36-3.74) uIU/mL 3.63 ECG Data Attestation: I personally reviewed and interpreted this ECG (s) as follows: Interpretation: EKG shows sinus tachycardia at 103, normal axis, no STEMI HPI General Mode of arrival: ambulatory. Date/Time Provider Initiated Documentation: 06/16/22 09:35. Limitations to Documentation: no limitations. Information obtained by: patient, RN notes reviewed and old records reviewed. HPI Narrative: Charles Blake is a 41-year-old man with history of sleep apnea presenting to the emergency department with bilateral leg swelling. Patient reports that over the past 2 weeks he has noticed swelling in both of his feet that has progressed to bilateral lower legs. Patient reports that he will intermittently have swelling of his feet and of his lower legs, however this has progressed more than typical for him. Patient reports that he has a new redness in the right lower leg, this has occurred with swelling in the past but seems worse than typical for him with this episode. He denies any other recent changes or symptoms, other than that his sleep apnea machine stopped working 1 month ago and he has not been using it for the past month. Patient also reports that he has been sitting more than usual over the past month or 2. He reports mild pain/tightness in both of his lower legs/feet. Denies any other pain, fever, shortness of breath, cough, vomiting, diarrhea, other rash, other swelling. Related Data Home Medications Medication Instructions Recorded Confirmed cephalexin 500 mg capsule 500 mg PO QID 10 days #40 caps 06/16/22 06/18/22 sol.stocking,knee,reg,xlrg #12 ea 06/16/22 06/18/22 hydrochlorothiazide 25 mg tablet 25 mg PO DAILY #90 tabs 06/18/22 06/18/22 Previous Rx's Medication Instructions Recorded cephalexin 500 mg capsule 500 mg PO QID 10 days #40 caps 06/16/22 sol.stocking,knee,reg,xlrg #12 ea 06/16/22 hydrochlorothiazide 25 mg tablet 25 mg PO DAILY #90 tabs 06/18/22 Allergies Allergy/AdvReac Type Severity Reaction Status Date / Time amoxicillin [From Augmentin] Allergy Intermediate vomits Verified 06/18/22 09:42 clavulanic acid Allergy Intermediate vomits Verified 06/18/22 09:42 [From Augmentin] coconut Allergy Severe Anaphylaxsi Uncoded 06/18/22 09:42 s shrimp Allergy Severe Cardiac Uncoded 06/18/22 09:42 Dysrythmia General Stated Complaint: GenMedical ELIUD: 3 Review of Systems Narrative: Constitutional: denies fevers Eyes: denies eye pain ENT: denies ear pain, dental pain, sore throat Cardiovascular: denies chest pain Respiratory: denies SOB, cough GI: denies abdominal pain, vomiting, diarrhea : denies flank pain MSK: denies back pain, neck pain, arthralgias, myalgias Skin: reports redness bilateral lower legs, worse on the right Neuro: denies headaches, numbness, weakness PFSH All Active Problems Swelling of both lower extremities (Acute) Cellulitis (Acute) Left knee pain (Acute) Left shoulder strain (Acute) Sleep apnea (Acute) Umbilical hernia (Acute 08/29/13) Medical History Obesity Surgical History History of ankle surgery S/P appendectomy Social History Smoking/Tobacco Use Status: Former Tobacco Use Tobacco: How many years used: 21 Smoking risk assessment performed?: Yes Alcohol Intake: current Alcohol Intake frequency: holidays/special occasions only Drug use: Rarely Substance use type: marijuana Do you feel safe at home: Yes Do you feel safe in your relationship?: Yes Exam Narrative Exam Narrative: Constitutional: well and [id number], pleasant, conversing normally HENT: head atraumatic/normocephalic/normal inspection, mucous membranes moist Eyes: conjunctiva normal, sclera normal, pupils 3mm b/l Neck: no stridor, normal ROM, trachea midline Resp: normal work of breathing, speaking in full sentences Cardio: normal rate (tachycardia from triage resolved), normal rhythm Skin: warm, dry, normal color, erythematous bilateral lower extremities otherwise no rash Neuro: alert, not altered, grossly non-focal, normal tone Ext: 3+ pitting edema bilateral lower legs and feet, DP pulses not palpable, toes/feet warm and well-perfused, mild erythema of the left lower leg, erythema of the right lower leg with several areas weeping serous fluid, no crepitus bilateral leg/feet, no tenderness to palpation of the posterior calves or of the left lower leg, mild tenderness palpation of the anterior right lower leg and area of worse redness, erythema does not extend to the knee bilaterally, no popliteal tenderness to palpation, full painless range of motion bilateral toes/ankle/knee Psych: normal mood, normal affect, normal behavior Course Vital Signs Vital signs: Vital Signs Temperature 37.3 C 06/16/22 09:43 Pulse 113 H 06/16/22 09:43 Respiratory Rate 16 06/16/22 09:43 Blood Pressure 173/99 H 06/16/22 09:43 Pulse Oximetry 96 06/16/22 09:43 Temperature 37.3 C 06/16/22 09:43 Temperature Source Temporal Artery Scan 06/16/22 09:43 Pulse 113 H 06/16/22 09:43 Respiratory Rate 16 06/16/22 09:43 Respiratory Effort 06/16/22 09:43 Blood Pressure 173/99 H 06/16/22 09:43 Blood Pressure Position Sitting 06/16/22 09:43 Pulse Oximetry 96 06/16/22 09:43 Oxygen Delivery Method Room Air 06/16/22 09:43 Oxygen Flow Rate 0 06/16/22 09:43 Pain Level 0 06/16/22 09:43 Lab/Test Results Lab/Test Results: Laboratory Tests Range/Units 06/16/22 06/16/22 10:35 10:35 WBC (4.4-10.8) 10^3/uL 9.05 RBC (4.36-5.78) 10^6/uL 5.33 Hgb (13.5-17.5) g/dL 15.7 Hct (40.0-50.0) % 46.9 MCV (80-95) fL 88 MCH (27.0-33.0) pg 29.5 MCHC (32.0-36.0) % 33.5 RDW (11.8-14.1) % 13.5 Plt Count (130-400) 10^3/uL 286 MPV (8.0-11.0) fL 10.0 Immature Gran % 0.2 Neutrophils % 60.8 Lymphocytes % 20.8 Monocytes % 11.6 Eosinophils % 5.9 Basophils % 0.7 Nucleated RBC % (0.0-0.3) % 0.0 Absolute Neutrophils (1.2-6.7) 10^3/uL 5.51 Absolute Lymphocytes (1.2-3.4) 10^3/uL 1.88 Absolute Monocytes (0.1-0.8) 10^3/uL 1.05 H Absolute Eosinophils (0.0-0.7) 10^3/uL 0.53 Absolute Basophils (0.0-0.2) 10^3/uL 0.06 Sodium (136-145) mmol/L 138 Potassium (3.5-5.1) mmol/L 3.6 Chloride (98-107) mmol/L 101 Carbon Dioxide (21.0-32.0) mmol/L 31.2 Anion Gap (3-11) mmol/L 5.8 BUN (7-18) mg/dL 12 Creatinine (0.70-1.30) mg/dL 0.8 Estimated GFR/1.73 m2 (mL/min/1.73m2) >= 60.00 Glucose (74-106) mg/dL 95 Calcium (8.5-10.1) mg/dL 8.9 Total Bilirubin (0.2-1.0) mg/dL 0.6 AST (15-37) U/L 25 ALT (16-63) U/L 53 Alkaline Phosphatase (46-116) U/L 72 NT-Pro-B Natriuret Pep (<300) pg/mL 20 Total Protein (6.4-8.2) g/dL 8.2 Albumin (3.4-5.0) g/dL 3.5 TSH (0.36-3.74) uIU/mL 3.63
[2022-06-16 13:20] VITALS: RESP 16
--- NOTE | 2022-06-16 15:15 | PDOC.ERCMPRO ---
- If Service Date Differs Date of service: 06/16/22 Time of Service: 15:15 Care Management Progress Note Charles is seen in the ED for bilateral leg swelling. At the request of ED provider, MARIANN meets with Charles to inquire about his PCP. Charles reports he does not currently have a PCP and states he has seen several local providers but it has been years since he has seen a doctor. Charles states he lives in [place] and would prefer to establish care at [facility] as coming to [facility] is difficult for him. MAIRANN contacts Josy Hearn RN Produce Production Team Member at [facility], to inquire if Charles could be seen in follow-up on Thursday. After consulting with her supervisor pipelines, Josy advises that Charles can come to [facility] and while there, he can complete a new patient packet to get established. MARIANN relays this information to Dr. Jeff and to Charles. MARIANN also coordinates a referral to Home Health for nursing assistance in putting on compression socks. MARIANN subsequently receives a phone call from the Home Health intake office who advises that Home Health does not provide that service. This is relayed to both Charles and the ED provider. Charles will follow up with [facility] on Thursday as planned and will ask for their assistance with putting on compression socks if he is unable to find a friend or family member who can assist him prior to Thursday.
== END 2022-06-16 13:18 | disposition home or self-care (01) ==
PROVIDERS: Emergency Provider Student in an Organized Health Care Education/Training Program
DX: R22.43 Localized swelling, mass and lump, lower limb, bilateral (principal); L03.115 Cellulitis of right lower limb; R00.0 Tachycardia, unspecified
CPT/HCPCS: 36415; 80053; 93005; 99284; 83880; 84443; 85025; 93010; 93970; 99283

== ENCOUNTER 2022-07-14 17:07 | Outpatient (REF) | payer MEDICAID, SELFPAY | END 2022-07-14 17:08 | disposition home or self-care (01) | LOC: LBN 17:07 | PROVIDERS: PCP Nurse Practitioner Family; Visit Provider Physician Assistant | DX: L98.8 Other specified disorders of the skin and subcutaneous tissue (principal) | CPT/HCPCS: 87077; 87070; 87205 ==

== ENCOUNTER 2022-07-25 10:03 | Emergency (ER) | payer MEDICAID, SELFPAY ==
[2022-07-25] VITALS (62 sets, daily range): BP systolic 127–179; BP diastolic 58–95; PULSE 97–126; RESP 10–25; TEMP 36.4; O2SAT 90–96
--- NOTE | 2022-07-25 10:00 | RT.EKG_ITS ---
APPROVED REPORT Exam: Resting ECG Reason for Exam: tachycardia Patient Location: E HR:110 bpm ECG Measurements Heart Rate 110 AXIS WI 198 P 61 QRSd 93 QRS 32 QT 332 T 66 QTc 448 Conclusion Sinus tachycardia...rate> 99 Borderline prolonged [place] interval...W[place] >197, V-rate 91-120 sinus tachycardai, normal axis, normal intervals, non ischemic
[2022-07-25 10:39] LABS: Abs Immature Grans 0.04 10^3/uL (0.0-0.06); Absolute Basophil Count 0.03 10^3/uL (0.0-0.2); Absolute Eosinophil Count 0.02 10^3/uL (0.0-0.7); Absolute Lymphocyte Count 1.14 10^3/uL (1.2-3.4); Absolute Monocyte Count 0.55 10^3/uL (0.1-0.8); Absolute Neutrophil Count 8.73 10^3/uL (1.2-6.7); Basophils % 0.3; Eosinophils % 0.2; HCT 48.8 % (40.0-50.0); Immature Grans % 0.4; Lymphocytes % 10.8; MCH 28.8 pg (27.0-33.0); MCHC 32.8 % (32.0-36.0); MCV 88 fL (80-95); MPV 9.4 fL (8.0-11.0); Monocytes % 5.2; Neutrophils % 83.1; Platelet Count 460 10^3/uL (130-400); RBC 5.55 10^6/uL (4.36-5.78); RDW 12.7 % (11.8-14.1); RDW-SD 41.2 fL; WBC 10.51 10^3/uL (4.4-10.8)
[2022-07-25] MEDS: Normal Saline 1,000 ML 1000 ML IV ×2 (10:50→16:13)
[2022-07-25] MEDS: Ondansetron 4 MG/2 ML VIAL IVP (10:51)
[2022-07-25] MEDS: Ketorolac 30 MG/ML VIAL IVP (10:51)
[2022-07-25 10:55] LABS: ALT 68 U/L (16-63); AST 31 U/L (15-37); Albumin 3.4 g/dL (3.4-5.0); Alkaline Phosphatase 69 U/L (46-116); Anion Gap 9.7 mmol/L (3-11); BUN 13 mg/dL (7-18); Bilirubin, Total 0.8 mg/dL (0.2-1.0); CO2 30.3 mmol/L (21.0-32.0); CREATININE 0.7 mg/dL (0.70-1.30); Calcium 8.9 mg/dL (8.5-10.1); Chloride 101 mmol/L (98-107); Glucose 122 mg/dL (74-106); Potassium 3.6 mmol/L (3.5-5.1); Sodium 141 mmol/L (136-145); Total Protein 8.6 g/dL (6.4-8.2)
--- NOTE | 2022-07-25 11:45 | DI.US_ITS ---
Exam(s) US ABDOMEN LIMITED EXAM: US ABDOMEN LIMITED CLINICAL HISTORY: RUQ and Epigastric TECHNIQUE: Ultrasound abdomen performed using standard protocol. COMPARISON: CT scan 05/26/2020 was reviewed. FINDINGS: There is no ascites evident. LIVER: There is hyperechoic indicating fatty parenchymal change. There are no discrete focal hepatic lesions identified. GALLBLADDER/BILIARY: There are no gallstones. No gallbladder wall edema nor pericholecystic fluid. The common hepatic duct was not able to be seen due to overlying bowel gas and body habitus.. PANCREAS: Less than optimally visualized but no obvious abnormality. No abnormal fluid collection in this region. RIGHT KIDNEY:No evidence of solid mass, calculus, nor hydronephrosis. No cortical cysts evident. IMPRESSION: 1. No evidence of cholelithiasis. The common hepatic duct was not able to be visualized. 2. Hepatic steatosis. Correlation with appropriate hepatic blood work recommended. No obvious foca l hepatic lesions evident. 3. There is no ascites. DATA REPOSITORY:
[2022-07-25 12:06] LABS: Bilirubin Small (Negative); Blood Trace-intact (Negative); Clarity Sl Cloudy (Clear); Glucose Negative (Negative); Ketones 15 mg/dL (Negative); Leukocyte Esterase Negative (Negative); Nitrite Negative (Negative); Specific Gravity 1.025 (1.005-1.025); Urobilinogen 0.2 EU/dL (Up TO 0.2)
[2022-07-25 12:08] LABS: Lipase 80 U/L (73-393); Magnesium 2.1 mg/dL (1.8-2.4); Troponin I < 50 ng/L (<or=60)
[2022-07-25 12:14] LABS: Bacteria Moderate HPF (Negative); C & S Indicated? Yes; Casts Negative LPF (Negative); Crystals Negative HPF (Negative); Epithelial Cells Few HPF (Negative); Mucus Moderate (Negative); WBC 0-2 HPF (0-5)
--- NOTE | 2022-07-25 13:07 | ED.GENADUL_ITS ---
Discharge Plan Disposition Patient Disposition: HOME Condition: Stable Discharge Details Clinical Impression: Abdominal pain Primary Care Provider: Jocelyn Lopez ED Provider: Dianelys Patel Home Meds and New Rx's Prescriptions: No Action hydrochlorothiazide 25 mg tablet 25 mg PO DAILY Qty: 90 0RF doxycycline hyclate 100 mg capsule 100 mg PO BID Qty: 20 0RF mupirocin 2 % ointment 1 applic topical TID Qty: 22 0RF cephalexin 500 mg capsule 500 mg PO QID Qty: 40 0RF (DME) sol.stocking,knee,reg,xlrg Misc See Rx Instructions .Route Qty: 12 0RF Rx Instructions: As directed Discharge Instructions Instructions: Abdominal Pain (ED) Additional Instructions: Please follow-up with your primary care physician Have ultrasound of your gallbladder Steroid from spicy food, acidic food, and fatty foods Return earlier should he have new or worsening complaints Referrals: Jocelyn Lopez NP [Primary Care Provider] - 1 day Discharge Data Discharge Date/Time-TO BE ENTERED AT DEPARTURE: 07/25/22 21:09 Medical Decision Making <Santos Melgoza NP - Last Filed: 07/26/22 15:37> Patient presenting to Emergency department for chief complaint of abdominal pain. Patient reports that this started approximately 6 hours after eating some chop gibson. Patient denies any vomiting but does state slight nausea, no diarrhea no fever chills. Physical exam shows a morbidly obese male with large central obesity, clear lung sounds, tachycardia, abdominal pain to palpation of epigastrium and right upper quadrant with Kuo sign. Exam is somewhat limited by patient's obesity but no other tenderness is appreciated. We will plan on checking labs and due to tachycardia will perform EKG. Please see physician interpretation for full interpretation of EKG but patient is in sinus rhythm at rate of 110. Reviewed patient's labs that show an overall unremarkable CBC but platelet count is 460, slightly elevated neutrophils and low lymphocytes otherwise normal. CMP is unremarkable except for slight elevation of ALT at 68. Patient has normal lipase and normal troponin. Pending ultrasound imaging and urinalysis patient did stand up to urinate noted heart rate in the 150s TO 160. Patient denies any chest pain shortness of breath or difficulty breathing during this event. Ultrasound imaging performed due to inability to do CT imaging due to patient's body habitus. Ultrasound shows Hepatic steatosis but otherwise nondiagnostic. Patient reassessed but does have improvement of abdominal pain but remains tachycardic and specifically with any sort of movement/activity. Patient's saturation also did seem to be in the low 90s at rest. And concern for possible other pathologies due to patient's tachycardia. Patient agreeable to V/Q scanning and thyroid testing given that he is persistently tachycardic. Pending results of VQ scan patient signed out to Dianelys HOOK. Medical Records Medical records reviewed: Yes I reviewed the patient's medical records. Imaging Data Radiologic Study: Imaging: Ultrasound Radiologist's impression: FINDINGS: There is no ascites evident. LIVER: There is hyperechoic indicating fatty parenchymal change. There are no discrete focal hepatic lesions identified. GALLBLADDER/BILIARY: There are no gallstones. No gallbladder wall edema nor pericholecystic fluid. The common hepatic duct was not able to be seen due to overlying bowel gas and body habitus.. PANCREAS: Less than optimally visualized but no obvious abnormality. No abnorma l fluid collection in this region. RIGHT KIDNEY:No evidence of solid mass, calculus, nor hydronephrosis. No cortical cysts evident. IMPRESSION: 1. No evidence of cholelithiasis. The common hepatic duct was not able to be visualized. 2. Hepatic steatosis. Correlation with appropriate hepatic blood work recommended. No obvious focal hepatic lesions evident. 3. There is no ascites Lab Data Lab results reviewed: Yes I reviewed the patient's lab results. <MILADYS Marques - Last Filed: 07/25/22 23:35> Patient presenting to Emergency department for chief complaint of abdominal pain. Patient reports that this started approximately 6 hours after eating some chop gibson. Patient denies any vomiting but does state slight nausea, no diarrhea no fever chills. Physical exam shows a morbidly obese male with large central obesity, clear lung sounds, tachycardia, abdominal pain to palpation of epigastrium and right upper quadrant with Kuo sign. Exam is somewhat limited by patient's obesity but no other tenderness is appreciated. We will plan on checking labs and due to tachycardia will perform EKG. Please see physician interpretation for full interpretation of EKG but patient is in sinus rhythm at rate of 110. Reviewed patient's labs that show an overall unremarkable CBC but platelet count is 460, slightly elevated neutrophils and low lymphocytes otherwise normal. CMP is unremarkable except for slight elevation of ALT at 68. Patient has normal lipase and normal troponin. Pending ultrasound imaging and urinalysis patient did stand up to urinate noted heart rate in the 150s TO 160. Patient denies any chest pain shortness of breath or difficulty breathing during this event. Ultrasound imaging performed due to inability to do CT imaging due to patient's body habitus. Ultrasound shows Hepatic steatosis but otherwise nondiagnostic. Patient reassessed but does have improvement of abdominal pain but remains tachycardic and specifically with any sort of movement/activity. Patient's saturation also did seem to be in the low 90s at rest. And concern for possible other pathologies due to patient's tachycardia. Patient agreeable to V/Q scanning and thyroid testing given that he is persistently tachycardic. Pending results of VQ scan patient signed out to Dianelys HOOK. LB: care accepted from [facility] Patient VQ scan does not show evidence of acute abnormality The patient is resting comfortably in room He is encouraged to follow-up with his primary care physician and will likely need CT imaging should he have persistent pain, unfortunately this is unable to be performed at our facility He has a benign abdominal exam now We discussed diet choices His vitals have improved and he is feeling symptomatically improved At this time I think he stable for discharge home HPI <Santos Melgoza NP - Last Filed: 07/26/22 15:37> General Mode of arrival: ambulatory . Date/Time Provider Initiated Documentation: 07/25/22 10:23 . Limitations to Documentation: no limitations . Information obtained by: patient, RN notes reviewed and old records reviewed . History of Present Illness 42 year old M presents to the emergency department with the chief complaint of Abdominal pain, described as moderate, with intensity rated at 6. Quality is described as aching and other (cramping), and is localized to the abdomen. Patient reports no radiation. Patient started experiencing this day(s) (1) and it has been constant. No relieving factors improve symptom(s), Eating worsens symptoms . Patient did receive the following treatments prior to arrival, none Related Data Home Medications Medication Instructions Recorded Confirmed sol.stocking,knee,reg,xlrg #12 ea 06/16/22 07/25/22 hydrochlorothiazide 25 mg tablet 25 mg PO DAILY #90 tabs 07/20/22 08/26/22 doxycycline hyclate 100 mg capsule 100 mg PO BID #20 caps 07/14/22 07/25/22 mupirocin 2 % topical ointment 1 applic topical TID #22 grams 07/14/22 07/25/22 cephalexin 500 mg capsule 500 mg PO QID #40 caps 07/16/22 07/25/22 Previous Rx's Medication Instructions Recorded sol.stocking,knee,reg,xlrg #12 ea 06/16/22 hydrochlorothiazide 25 mg tablet 25 mg PO DAILY #90 tabs 06/18/22 doxycycline hyclate 100 mg capsule 100 mg PO BID #20 caps 07/14/22 mupirocin 2 % topical ointment 1 applic topical TID #22 grams 07/14/22 cephalexin 500 mg capsule 500 mg PO QID #40 caps 07/16/22 Allergies Allergy/AdvReac Type Severity Reaction Status Date / Time amoxicillin [From Augmentin] AdvReac Intermediate vomits Verified 07/25/22 10:57 clavulanic acid AdvReac Intermediate vomits Verified 07/25/22 10:57 [From Augmentin] coconut Allergy Severe Anaphylaxsi Uncoded 07/14/22 09:57 s shrimp Allergy Severe Cardiac Uncoded 07/14/22 09:57 Dysrythmia General Stated Complaint: Abd Prob ELIUD: 3 Review of Systems <Santos Melgoza NP - Last Filed: 07/26/22 15:37> Constitutional Constitutional: Denies chills, Denies fever(s) and Denies malaise Cardiovascular Cardiovascular: Denies chest pain, Denies syncope, Denies rapid heart rate, Denies pedal edema, Reports leg edema (Improving), Denies palpitations and Denies dyspnea Respiratory Respiratory: Denies cough and Denies dyspnea Gastrointestinal Gastrointestinal: Reports as per HPI, Reports abdominal pain, Denies melena, Denies change in bowel habits, Denies constipation, Denies diarrhea, Denies loose stools, Reports nausea and Denies vomiting Genitourinary Genitourinary: Denies hematuria, Denies difficulty urinating, Denies urinary hesitancy and Denies urinary incontinence Integumentary/Breasts Skin/Breast: Denies rash Neurologic Neurologic: Denies syncope Psychiatric Psychiatric: Denies anxiety Endocrine Endocrine: Denies palpitations PFSH <Santos Melgoza NP - Last Filed: 07/26/22 15:37> All Active Problems (Updated 07/25/22 @ 20:44 by MILADYS Marques) Abdominal pain (Acute) Left knee pain (Acute) Left shoulder strain (Acute) Sleep apnea (Acute) Umbilical hernia (Acute 08/29/13) Medical History Obesity Surgical History History of ankle surgery S/P appendectomy Social History (Updated 07/22/22 @ 16:28 by Cara Ag) Smoking/Tobacco Use Status: Former Tobacco Use tobacco type: cigarettes Quit Date: 05/02/22 Tobacco: How many years used: 21 Second Hand Exposure: Yes Smoking risk assessment performed?: Yes Alcohol Intake: current Alcohol Intake frequency: holidays/special occasions only Alcohol type: hard liquor Drug use: Never Caregiver/Support person: No Household members: family Housing: house Pets and animals: No Do you think of yourself as: straight/heterosexual Current gender identity: male What is your relationship status?: never How often do you talk on the phone with friends or family?: three or more times per week How often do you get together with friends or relatives?: once per week How often do you attend zoroastrianism or anglican services?: decline to answer Do you belong to any clubs or organized social groups?: decline to answer Panel score (0-1 are the most socially isolated patients): 1 What type of physical activity do you participate in: none Shira/Moravian: No preference Seatbelt use: always Drive intox or ride w/intox certified driver examiner: No Do you feel safe at home: Yes Do you feel safe in your relationship?: Yes Exam <Santos Melgoza NP - Last Filed: 07/26/22 15:37> Const General: cooperative Nutritional Appearance: obese morbidly obese Orientation: alert, awake and oriented x3 Resp Effort & Inspection: normal respiratory effort and able to speak in complete sentences Auscultation: clear to auscultation bilaterally Cardio Rate: tachycardic Rhythm: regular rhythm Heart Sounds: S1 normal and S2 normal GI Palpation: soft, not firm, no guarding, no masses, no pulsatile masses, not rigid and tender in the epigastrum, in the RUQ and Kuo's sign positive; not at McBurney's point, not periumbilically, psoas sign negative, with no rebound tenderness and Rovsing's sign negative Auscultation: normal bowel sounds Back/Spine/Pelvis Back: no CVA tenderness Neuro General: patient alert, patient awake, patient oriented x3, gait normal and moves all extremities Course <Santos Melgoza NP - Last Filed: 07/26/22 15:37> Vital Signs Vital signs: Vital Signs Temperature 36.4 C L 07/25/22 10:07 Pulse 121 H 07/25/22 10:07 Respiratory Rate 17 07/25/22 10:07 Blood Pressure 148/92 H 07/25/22 10:07 Pulse Oximetry 95 07/25/22 10:07 Temperature 36.4 C L 07/25/22 10:07 Temperature Source Temporal Artery Scan 07/25/22 10:07 Pulse 109 H 07/25/22 12:01 Pulse 117 H 07/25/22 12:01 Respiratory Rate 19 07/25/22 12:01 Respiratory Effort Non-Labored 07/25/22 10:15 Blood Pressure 137/70 07/25/22 12:01 Blood Pressure Mean 86 07/25/22 12:01 Blood Pressure Position Sitting 07/25/22 10:07 Pulse Oximetry 94 07/25/22 12:01 Oxygen Delivery Method Room Air 07/25/22 10:07 Oxygen Flow Rate 0 07/25/22 10:07 Pain Level 6 07/25/22 10:07 Lab/Test Results Lab/Test Results: 07/25/22 11:58 Urine - Reflex from Ua Urine Culture - Pending Laboratory Tests Range/Units 07/25/22 07/25/22 07/25/22 10:24 10:24 10:24 WBC (4.4-10.8) 10^3/uL 10.51 RBC (4.36-5.78) 10^6/uL 5.55 Hgb (13.5-17.5) g/dL 16.0 Hct (40.0-50.0) % 48.8 MCV (80-95) fL 88 MCH (27.0-33.0) pg 28.8 MCHC (32.0-36.0) % 32.8 RDW (11.8-14.1) % 12.7 Plt Count (130-400) 10^3/uL 460 H MPV (8.0-11.0) fL 9.4 Immature Gran % 0.4 Neutrophils % 83.1 Band Neutrophils % Lymphocytes % 10.8 Atypical Lymphs % Monocytes % 5.2 Eosinophils % 0.2 Basophils % 0.3 Metamyelocytes % Myelocytes % Promyelocytes % Other Cells % Nucleated RBC % (0.0-0.3) % 0.0 Absolute Neutrophils (1.2-6.7) 10^3/uL 8.73 H Absolute Lymphocytes (1.2-3.4) 10^3/uL 1.14 L Absolute Monocytes (0.1-0.8) 10^3/uL 0.55 Absolute Eosinophils (0.0-0.7) 10^3/uL 0.02 Absolute Basophils (0.0-0.2) 10^3/uL 0.03 RBC Morphology Polychromasia Hypochromasia Poikilocytosis Basophilic Stippling Anisocytosis Microcytosis Macrocytosis Spherocytes Tear Drop Cells Ovalocytes Stomatocytes [place] Bodies Birdie Cells/Echinocytes Acanthocytes (Spur) Schistocytes Sodium (136-145) mmol/L 141 Potassium (3.5-5.1) mmol/L 3.6 Chloride (98-107) mmol/L 101 Carbon Dioxide (21.0-32.0) mmol/L 30.3 Anion Gap (3-11) mmol/L 9.7 BUN (7-18) mg/dL 13 Creatinine (0.70-1.30) mg/dL 0.7 Estimated GFR/1.73 m2 (mL/min/1.73m2) >= 60.00 Glucose (74-106) mg/dL 122 H Calcium (8.5-10.1) mg/dL 8.9 Magnesium (1.8-2.4) mg/dL 2.1 Total Bilirubin (0.2-1.0) mg/dL 0.8 AST (15-37) U/L 31 ALT (16-63) U/L 68 H Alkaline Phosphatase (46-116) U/L 69 Troponin I (<or=60) ng/L < 50 Total Protein (6.4-8.2) g/dL 8.6 H Albumin (3.4-5.0) g/dL 3.4 Lipase (73-393) U/L 80 Urine Color (Yellow) Urine Clarity (Clear) Urine pH (5-8) Ur Specific [place]ill (1.005-1.025) Urine Protein (Negative) mg/dL Urine Ketones (Negative) mg/dL Urine Blood (Negative) Urine Nitrite (Negative) Urine Bilirubin (Negative) Urine Urobilinogen (Up TO 0.2) EU/dL Ur Leukocyte Esterase (Negative) Urine RBC (0-2) HPF Urine WBC (0-5) HPF Ur Epithelial Cells (Negative) HPF Urine Crystals (Negative) HPF Urine Bacteria (Negative) HPF Urine Casts (Negative) LPF Urine Mucus (Negative) Ur Culture Indicated? Urine Glucose (Negative) mg/dL Range/Units 07/25/22 07/25/22 07/25/22 10:38 10:38 11:58 WBC (4.4-10.8) 10^3/uL Cancelled RBC (4.36-5.78) 10^6/uL Cancelled Hgb (13.5-17.5) g/dL Cancelled Hct (40.0-50.0) % Cancelled MCV (80-95) fL Cancelled MCH (27.0-33.0) pg Cancelled MCHC (32.0-36.0) % Cancelled RDW (11.8-14.1) % Cancelled Plt Count (130-400) 10^3/uL Cancelled MPV (8.0-11.0) fL Cancelled Immature Gran % Cancelled Neutrophils % Cancelled Band Neutrophils % Cancelled Lymphocytes % Cancelled Atypical Lymphs % Cancelled Monocytes % Cancelled Eosinophils % Cancelled Basophils % Cancelled Metamyelocytes % Cancelled Myelocytes % Cancelled Promyelocytes % Cancelled Other Cells % Cancelled Nucleated RBC % (0.0-0.3) % Cancelled Absolute Neutrophils (1.2-6.7) 10^3/uL Cancelled Absolute Lymphocytes (1.2-3.4) 10^3/uL Cancelled Absolute Monocytes (0.1-0.8) 10^3/uL Cancelled Absolute Eosinophils (0.0-0.7) 10^3/uL Cancelled Absolute Basophils (0.0-0.2) 10^3/uL Cancelled RBC Morphology Cancelled Polychromasia Cancelled Hypochromasia Cancelled Poikilocytosis Cancelled Basophilic Stippling Cancelled Anisocytosis Cancelled Microcytosis Cancelled Macrocytosis Cancelled Spherocytes Cancelled Tear Drop Cells Cancelled Ovalocytes Cancelled Stomatocytes Cancelled [place] Bodies Cancelled [place] Cells/Echinocytes Cancelled Acanthocytes (Spur) Cancelled Schistocytes Cancelled Sodium (136-145) mmol/L Cancelled Potassium (3.5-5.1) mmol/L Cancelled Chloride (98-107) mmol/L Cancelled Carbon Dioxide (21.0-32.0) mmol/L Cancelled Anion Gap (3-11) mmol/L Cancelled BUN (7-18) mg/dL Cancelled Creatinine (0.70-1.30) mg/dL Cancelled Estimated GFR/1.73 m2 (mL/min/1.73m2) Cancelled Glucose (74-106) mg/dL Cancelled Calcium (8.5-10.1) mg/dL Cancelled Magnesium (1.8-2.4) mg/dL Total Bilirubin (0.2-1.0) mg/dL Cancelled AST (15-37) U/L Cancelled ALT (16-63) U/L Cancelled Alkaline Phosphatase (46-116) U/L Cancelled Troponin I (<or=60) ng/L Total Protein (6.4-8.2) g/dL Cancelled Albumin (3.4-5.0) g/dL Cancelled Lipase (73-393) U/L Urine Color (Yellow) Yellow Urine Clarity (Clear) Sl Cloudy Urine pH (5-8) 6.0 Ur Specific [place] (1.005-1.025) 1.025 Urine Protein (Negative) mg/dL Negative Urine Ketones (Negative) mg/dL 15 H Urine Blood (Negative) Trace-intact H Urine Nitrite (Negative) Negative Urine Bilirubin (Negative) Small H Urine Urobilinogen (Up TO 0.2) EU/dL 0.2 Ur Leukocyte Esterase (Negative) Negative Urine RBC (0-2) HPF 5-10 H Urine WBC (0-5) HPF 0-2 Ur Epithelial Cells (Negative) HPF Few Urine Crystals (Negative) HPF Negative Urine Bacteria (Negative) HPF Moderate Urine Casts (Negative) LPF Negative Urine Mucus (Negative) Moderate Ur Culture Indicated? Yes Urine Glucose (Negative) mg/dL Negative Sign Out <Santos Melgoza NP - Last Filed: 07/26/22 15:37> Sign Out Data: Sign Out Comment: Patient signed out pending VQ scan and thyroid studies for tachycardia noted with activity. Otherwise abdominal discomfort is highly suspicious for foodborne illness. Last updated by Santos Melgoza NP at 07/25/22 15:51
--- NOTE | 2022-07-25 15:00 | DI.NM_ITS ---
Exam(s) NM LUNG SCAN VENT PERF GRP EXAM: NM LUNG SCAN VENT PERF GRP CLINICAL HISTORY: tachycardia. TECHNIQUE: Radiopharmaceutical doses: Ventilation: 33 mCi Tc-99m DTPA via inhalation Perfusion: 5 mCi Tc-99m MAA via IV COMPARISON: CR,XR XR CHEST 2V PA LATERAL from 07/25/2022 FINDINGS: Chest x-ray 07/25/2022 was reviewed. There are no segmental perfusion defects. There are no V/Q mismatches. IMPRESSION: By the PIOPED criteria this scan is low probability for the presence of recent hemodynamically signif icant pulmonary emboli. Modified PIOPED II criteria Probability Criteria High Two or more segments of V/Q mismatch Low Normal Perfusion, Non segmental perfusion abnormalitie s, pleural effusion in at least 1/3 of pleural cavity with no other defect Radiograph/perfusion matched defect in mid to upper lung confined to segment, one to three small segmental perfusion defects (<25% of segment) Perfusion defect smaller than corresponding radiogra phic lesion. Intermediate All other findings DATA REPOSITORY:
--- NOTE | 2022-07-25 16:30 | DI.RAD_ITS ---
Exam(s) XR CHEST 2V PA LATERAL EXAM: XR CHEST 2V PA LATERAL CLINICAL HISTORY: NM. TECHNIQUE: 2D digital imaging was performed. COMPARISON: CR CHEST 2 VIEWS PA,LAT from 05/02/2013 FINDINGS: 2 views: Heart size is upper normal. The mediastinum is not widened. Left lung is clear. There is platelike atelectasis in the right lung base. No pleural effusions. IMPRESSION: Platelike atelectasis in the right lung base. DATA REPOSITORY: RADIATION DOSE DELIVERED:
[2022-07-25 16:52] LABS: TSH (W/Ref FT4) 0.63 uIU/mL (0.36-3.74)
[2022-07-25 17:07] LABS: D-Dimer 2096 ng/mlFEU (<500)
--- NOTE | 2022-07-25 17:18 | DI.VRAD_ITS ---
PROCEDURE INFORMATION: Exam: XR Chest Exam date and time: 07/25/2022 4:56 PM Age: 42 years old Clinical indication: Other: NM TECHNIQUE: Imaging protocol: Radiologic exam of the chest. Views: 2 views. COMPARISON: CT CHEST PE ABD PELVIS W 09/22/2020 10:42 AM FINDINGS: Lungs: Mild opacities in the left base may represent atelectasis or pneumonia.. Pleural spaces: Unremarkable. No pleural effusion. No pneumothorax. Heart/Mediastinum: Unremarkable. No cardiomegaly. Bones/joints: Unremarkable. IMPRESSION: Mild opacities in the left base may represent atelectasis or pneumonia.. Dictated and Authenticated by: Odilon Box MD. Ordering:SUDHEER Graham MD
--- NOTE | 2022-07-25 20:32 | DI.VRAD_ITS ---
PROCEDURE INFORMATION: Exam: NM Lung Ventilation and Perfusion Imaging Exam date and time: 07/25/2022 7:35 PM Age: 42 years old Clinical indication: Tachypnea TECHNIQUE: Imaging protocol: Nuclear pulmonary ventilation with aerosol or gas was performed followed by perfusion. Radiopharmaceutical: 5 mCi Tc-99m MAA (Macroaggregated Albumin), IV. 33 mCi Tc-99m DTPA (DTPA Aerosol), Inhalation. COMPARISON: CR XR CHEST 2V PA LATERAL 07/25/2022 4:56 PM FINDINGS: Ventilation: Normal. No ventilation defects. Perfusion: Normal. No perfusion defects. IMPRESSION: No ventilation perfusion mismatch. No evidence of pulmonary embolism. Dictated and Authenticated by: Abhilash Centeno MD. Ordering:SUDHEER Graham MD
--- NOTE | 2022-07-28 08:14 | W.ED.FU ---
Follow Up Plan: Contacted by radiology. Patient had RUQ US ordered on recent visit but order not signed. This was completed by me, no change to patients previously established care plan.
== END 2022-07-25 21:09 | disposition home or self-care (01) ==
PROVIDERS: Nurse Practitioner Family; Emergency Provider Physician Assistant; PCP Nurse Practitioner Family
DX: R00.0 Tachycardia, unspecified (principal); R10.9 Unspecified abdominal pain; R10.13 Epigastric pain; R10.11 Right upper quadrant pain
CPT/HCPCS: 36415; 78582; 80053; 83690; 93005; 96361; 96374; 96375; 99285; 71046; 76705; 81003; 81015; 83735; 84443; 84484; 85025; 85379; 87086; 93010; 99284; J1885; J2405

== ENCOUNTER 2022-08-06 08:28 | Emergency (ER) | payer MEDICAID, SELFPAY ==
[2022-08-06] VITALS (112 sets, daily range): BP systolic 83–146; BP diastolic 60–97; PULSE 98–169; RESP 10–32; TEMP 37; O2SAT 85–95
--- NOTE | 2022-08-06 08:30 | RT.EKG_ITS ---
APPROVED REPORT Exam: Resting ECG Reason for Exam: syncope Patient Location: E HR:136 bpm ECG Measurements Heart Rate 136 AXIS DE 148 P 68 QRSd 101 QRS 97 QT 292 T -61 QTc 440 Conclusion Sinus tachycardia...rate> 99 Inferior infarct, age indeterminate...Q>35mS, T neg, II III aVF [id number] Abnormal Electrocardiogram
--- NOTE | 2022-08-06 08:45 | DI.CT_ITS ---
Exam(s) CT CHEST PE ABD PELVIS W EXAM: CT CHEST PE ABD PELVIS W CLINICAL HISTORY: syncope, tachycardia, ruq pain to back. TECHNIQUE: Imaging Protocol: Axial CT angiography was performed with multi-slice acquisition and mu lti-planar and/or 3D reconstructions. CONTRAST MATERIAL: Intravenous: Omnipaque 350contrast volume:100 mL COMPARISON: CT CT CHEST PE ABD PELVIS W from 09/22/2020 FINDINGS: Examination limited by patient body habitus. CHEST: Tracheobronchial tree: Patent where visualized. Pulmonary parenchyma: There is small focus of consolidation in the lateral aspect of the left lower l obe. The lungs are otherwise clear. No architectural distortion. Pulmonary Arteries: There are filling defects in segmental and subsegmental branches of the pulmonary arteries involving all 5 lobes. There is no evidence of a saddle embolus. There is right heart str ain noted. Mediastinum and Sherita: No dominant adenopathy or fluid collection. The esophagus is unremarkable. Visualized thyroid gland: Unremarkable. Pleura: No effusion or pneumothorax. Heart: There is evidence of right heart strain. No coronary artery calcifications are seen. No peric ardial effusion. Aorta: Thoracic aorta non-dilated. No evidence of dissection. Bones: Within normal limits for the patient's age. There is an old healed left rib fracture Soft tissues: Unremarkable. ABDOMEN: Portions of the anterior abdomen are excluded secondary to the patient's body habitus. Liver: There is diffuse decreased attenuation of the liver consistent with fatty infiltration no deepika urable mass. Portal, Superior Mesenteric, and Splenic Veins: Unremarkable. Gallbladder and Biliary Tract: No radiodense calculus or dilation. Pancreas: Normal density, no abnormal calcifications or inflammatory process. Spleen: Normal. Adrenals: No masses seen. Kidneys: Normal size, contour and axis. No radiodense stones or obstructive uropathy. No masses seen. Abdominal Aorta: Abdominal portion non-dilated. Bowel: The patient has a midline anterior abdominal wall hernia containing a loop of small bowel. Th ere is dilatation of the small bowel with in the hernia and the proximal small bowel anterior to the hernia consistent with obstruction. The distal small bowel is of normal caliber. No evidence of janie endicitis. Peritoneal Cavity: No ascites, collection or mesenteric inflammatory response. No free air. Lymph Nodes: Within normal limits. Bones: Within normal limits for the patient's age. Soft Tissues: There is a limited visualization of the anterior abdominal wall due to the patient's kiran dy habitus. There is an anterior abdominal wall hernia as described under the section bowel. PELVIS: Bladder: Not well distended limiting evaluation. No gross abnormalities identified. Reproductive Organs: Unremarkable as visualized. Lymph Nodes: Within normal limits. Bones: Within normal limits. IMPRESSION: 1. Segmental and subsegmental pulmonary emboli involving all lobes of the lungs. There is evidence o f right heart strain. 2. Very small area of consolidation in the lateral aspect of the left lower lobe. This may represent atelectasis. Infarct cannot be entirely excluded. 3. There is an anterior midline abdominal wall hernia containing a loop of small bowel. There is dil atation of the small bowel proximal to the hernia consistent with an obstruction. 4. Fatty infiltration of the liver. 5. Results of this exam have been verbally communicated with provider. RADIATION DOSE DELIVERED: 2,571.67mGy.cm Total DLP DATA REPOSITORY: All CT scans at this facility are submitted to the National Radiology Data Registry (NRDR) Dose Index Registry (DIR) with the [employer] (ACR). RADIATION OPTIMIZATION: All CT scans at this facility use at least one of these dose optimization te chniques: automated exposure control; mA and/or kV adjustment per patient size (includes targeted exa ms where dose is matched to clinical indication); or iterative reconstruction.
[2022-08-06] MEDS: Lactated Ringers 500 ML 1000 ML IV ×2 (08:56→09:46)
[2022-08-06] MEDS: Ondansetron 4 MG/2 ML VIAL IVP (08:56)
[2022-08-06 09:04] LABS: Source Nasal/Nares
[2022-08-06 09:07] LABS: Abs Immature Grans 0.06 10^3/uL (0.0-0.06); HCT 54.9 % (40.0-50.0); HGB 18.3 g/dL (13.5-17.5); MCH 28.6 pg (27.0-33.0); MCHC 33.3 % (32.0-36.0); MCV 86 fL (80-95); MPV 10.4 fL (8.0-11.0); RDW 12.9 % (11.8-14.1); RDW-SD 40.1 fL; WBC 14.18 10^3/uL (4.4-10.8)
[2022-08-06 09:23] LABS: Absolute Lymphocyte Count 0.57 10^3/uL (1.2-3.4); Absolute Monocyte Count 1.13 10^3/uL (0.1-0.8); Absolute Neutrophil Count 12.34 10^3/uL (1.2-6.7); Atypical Lymphocytes % 0; Bands % 0
[2022-08-06 09:24] LABS: Diff Comment Manual Differential; Metamyelocytes % 1; Platelet Count 332 10^3/uL (130-400); RBC Morphology Normal
[2022-08-06 09:27] LABS: ALT 112 U/L (16-63); AST 32 U/L (15-37); Albumin 3.7 g/dL (3.4-5.0); Alkaline Phosphatase 89 U/L (46-116); Anion Gap 7.9 mmol/L (3-11); BUN 28 mg/dL (7-18); Bilirubin, Total 1.6 mg/dL (0.2-1.0); CO2 37.1 mmol/L (21.0-32.0); CREATININE 1.7 mg/dL (0.70-1.30); Calcium 9.5 mg/dL (8.5-10.1); Chloride 90 mmol/L (98-107); Estimated GFR 51.62 (mL/min/1.73m2); Glucose 127 mg/dL (74-106); Lipase 100 U/L (73-393); Magnesium 1.9 mg/dL (1.8-2.4); Sodium 135 mmol/L (136-145); Total Protein 9.1 g/dL (6.4-8.2)
[2022-08-06 09:29] LABS: Troponin I 466 ng/L (<or=60)
[2022-08-06 09:51] LABS: Bilirubin Large (Negative); Blood Trace-intact (Negative); Clarity Cloudy (Clear); Glucose Negative (Negative); Ketones 40 mg/dL (Negative); Leukocyte Esterase Negative (Negative); Nitrite Positive (Negative); Specific Gravity >= 1.030 (1.005-1.025); pH 5.5 (5-8)
--- NOTE | 2022-08-06 09:54 | ED.GENADUL_ITS ---
Discharge Plan Disposition Patient Disposition: STILL A PATIENT Discharge Details Primary Care Provider: Jocelyn Lopez ED Provider: Jayjay Jeff Home Meds and New Rx's Prescriptions: No Action hydrochlorothiazide 25 mg tablet 25 mg PO DAILY Qty: 90 0RF mupirocin 2 % ointment 1 applic topical TID Qty: 22 0RF ondansetron HCl 8 mg tablet 8 mg PO TID PRN (Reason: nausea and vomiting) Qty: 60 0RF (DME) sol.stocking,knee,reg,xlrg Misc See Rx Instructions .Route Qty: 12 0RF Rx Instructions: As directed Medical Decision Making 900 --42-year-old male with history of hypertension, obesity, recently had COVID 2 to 3 weeks ago, now with 1 week of nausea and vomiting with right upper quadrant abdominal pain and tenderness. Patient is tachycardic. He is normotensive. He appears hypovolemic. Patient is hypoxic low 90s on 3 L nasal cannula. EKG was reviewed and interpreted by me: Sinus tachycardia 136 bpm, S1 and Q 3, T3 is present. I am concerned about acute life-threatening pulmonary embolism. Plan to obtain stat CT of the chest. Given abdominal tenderness, consider acute cholecystitis and pancreatitis. I will check LFTs and lipase and add CT of the abdomen pelvis. 1000 --initial labs reviewed: Hypokalemia noted. I will give potassium IV. Troponin is elevated at 466. Concern for rate related ischemia, consider NSTEMI --patient has no chest pain. Leukocytosis with WBC of 14,000 noted. ALT is elevated, AST normal, lipase normal. Urinalysis concerning for positive nitrate, 10-20 WBCs and 3-5 RBCs with rare epithelial cells. Given his right-sided abdomen and flank pain, there is potential for acute pyelonephritis. CT is pending but I will initiate treatment with ceftriaxone for possible sepsis. 1105 --CT of the chest was interpreted by radiology: Multiple bilateral PEs, none in the main pulmonary arteries, right heart strain is present. Will give Lovenox. I called [facility] transfer center to request transfer and this was declined due to capacity. 1110 -- I called [facility] transfer center to request transfer and this was declined due to capacity. 1111 -- Radiologist called and notes ct abd pelv demonstrating midline anterior abd wall hernia with dilated small bowel proximally. concern for obstruction. Will hold Lovenox and give heparin bolus and infusion. 1125 --I called [facility] to request transfer and received call back noting they cannot accept due to capacity. Will contact [facility]. 1135 --I spoke with Dr. Castano at [facility], discussed ED presentation and course, he will accept the patient in transfer. Awaiting bed availability. Plan will be to place NG tube. Lab Data Lab results reviewed: Yes I reviewed the patient's lab results. Labs: 08/06/22 09:37 Urine - Reflex from Ua Urine Culture - Pending Laboratory Tests Range/Units 08/06/22 08/06/22 08/06/22 08:55 08:55 08:55 WBC (4.4-10.8) 10^3/uL 14.18 H RBC (4.36-5.78) 10^6/uL 6.40 H Hgb (13.5-17.5) g/dL 18.3 H Hct (40.0-50.0) % 54.9 H MCV (80-95) fL 86 MCH (27.0-33.0) pg 28.6 MCHC (32.0-36.0) % 33.3 RDW (11.8-14.1) % 12.9 Plt Count (130-400) 10^3/uL 332 MPV (8.0-11.0) fL 10.4 Immature Gran % 0.0 Neutrophils % 87.0 Band Neutrophils % 0 Lymphocytes % 4.0 Atypical Lymphs % 0 Monocytes % 8.0 Eosinophils % 0.0 Basophils % 0.0 Metamyelocytes % 1 Nucleated RBC % (0.0-0.3) % 0.0 Absolute Neutrophils (1.2-6.7) 10^3/uL 12.34 H Absolute Lymphocytes (1.2-3.4) 10^3/uL 0.57 L Absolute Monocytes (0.1-0.8) 10^3/uL 1.13 H Absolute Eosinophils (0.0-0.7) 10^3/uL 0.00 Absolute Basophils (0.0-0.2) 10^3/uL 0.00 RBC Morphology Normal Sodium (136-145) mmol/L 135 L Potassium (3.5-5.1) mmol/L 3.0 L Chloride (98-107) mmol/L 90 L Carbon Dioxide (21.0-32.0) mmol/L 37.1 H Anion Gap (3-11) mmol/L 7.9 BUN (7-18) mg/dL 28 H Creatinine (0.70-1.30) mg/dL 1.7 H Est GFR (CKD-EPI 2020) (mL/min/1.73m2) 51.62 Glucose (74-106) mg/dL 127 H Calcium (8.5-10.1) mg/dL 9.5 Magnesium (1.8-2.4) mg/dL 1.9 Total Bilirubin (0.2-1.0) mg/dL 1.6 H AST (15-37) U/L 32 ALT (16-63) U/L 112 H Alkaline Phosphatase (46-116) U/L 89 Troponin I (<or=60) ng/L 466 H* Total Protein (6.4-8.2) g/dL 9.1 H Albumin (3.4-5.0) g/dL 3.7 Lipase (73-393) U/L 100 Urine Color (Yellow) Urine Clarity (Clear) Urine pH (5-8) Ur Specific [place] (1.005-1.025) Urine Protein (Negative) mg/dL Urine Ketones (Negative) mg/dL Urine Blood (Negative) Urine Nitrite (Negative) Urine Bilirubin (Negative) Urine Urobilinogen (Up TO 0.2) EU/dL Ur Leukocyte Esterase (Negative) Urine RBC (0-2) HPF Urine WBC (0-5) HPF Ur Epithelial Cells (Negative) HPF Urine Crystals (Negative) HPF Urine Bacteria (Negative) HPF Urine Casts (Negative) LPF Urine Mucus (Negative) Urine Other (Negative) Ur Culture Indicated? Urine Glucose (Negative) mg/dL COVID-19 Source Nasal/Nares SARS-CoV-2 (PCR) (Negative) Negative Range/Units 08/06/22 09:37 WBC (4.4-10.8) 10^3/uL RBC (4.36-5.78) 10^6/uL Hgb (13.5-17.5) g/dL Hct (40.0-50.0) % MCV (80-95) fL MCH (27.0-33.0) pg MCHC (32.0-36.0) % RDW (11.8-14.1) % Plt Count (130-400) 10^3/uL MPV (8.0-11.0) fL Immature Gran % Neutrophils % Band Neutrophils % Lymphocytes % Atypical Lymphs % Monocytes % Eosinophils % Basophils % Metamyelocytes % Nucleated RBC % (0.0-0.3) % Absolute Neutrophils (1.2-6.7) 10^3/uL Absolute Lymphocytes (1.2-3.4) 10^3/uL Absolute Monocytes (0.1-0.8) 10^3/uL Absolute Eosinophils (0.0-0.7) 10^3/uL Absolute Basophils (0.0-0.2) 10^3/uL RBC Morphology Sodium (136-145) mmol/L Potassium (3.5-5.1) mmol/L Chloride (98-107) mmol/L Carbon Dioxide (21.0-32.0) mmol/L Anion Gap (3-11) mmol/L BUN (7-18) mg/dL Creatinine (0.70-1.30) mg/dL Est GFR (CKD-EPI 2020) (mL/min/1.73m2) Glucose (74-106) mg/dL Calcium (8.5-10.1) mg/dL Magnesium (1.8-2.4) mg/dL Total Bilirubin (0.2-1.0) mg/dL AST (15-37) U/L ALT (16-63) U/L Alkaline Phosphatase (46-116) U/L Troponin I (<or=60) ng/L Total Protein (6.4-8.2) g/dL Albumin (3.4-5.0) g/dL Lipase (73-393) U/L Urine Color (Yellow) [place] Urine Clarity (Clear) Cloudy Urine pH (5-8) 5.5 Ur Specific [place] (1.005-1.025) >= 1.030 H Urine Protein (Negative) mg/dL 100 H Urine Ketones (Negative) mg/dL 40 H Urine Blood (Negative) Trace-intact H Urine Nitrite (Negative) Positive H Urine Bilirubin (Negative) Large H Urine Urobilinogen (Up TO 0.2) EU/dL 1.0 H Ur Leukocyte Esterase (Negative) Negative Urine RBC (0-2) HPF 3-5 H Urine WBC (0-5) HPF 10-20 H Ur Epithelial Cells (Negative) HPF Rare Urine Crystals (Negative) HPF Negative Urine Bacteria (Negative) HPF Many Urine Casts (Negative) LPF Negative Urine Mucus (Negative) Heavy Urine Other (Negative) Negative Ur Culture Indicated? Yes Urine Glucose (Negative) mg/dL Negative COVID-19 Source SARS-CoV-2 (PCR) (Negative) HPI General Mode of arrival: ambulatory . Date/Time Provider Initiated Documentation: 08/06/22 08:29 . Limitations to Documentation: no limitations . Information obtained by: patient . HPI Narrative: 42-year-old male with history of hypertension, obesity, sleep apnea, here with chief complaint of vomiting. Patient notes vomiting for the past 1 week. Vomiting has been persistent and severe. No bloody vomit. He has associated nausea. He also notes right upper quadrant abdominal discomfort that radiates to his right flank. Patient also notes today after an episode of vomiting he suddenly felt dizzy and lost consciousness. He collapsed to the floor. He did not sustain any injury. Did not hit his head. Patient denies headache. Denies chest pain. No shortness of breath. Of note, patient tested positive for COVID approximately 2 to 3 weeks ago. Symptoms improved for a few days and then has subsequently had the vomiting. Related Data Home Medications Medication Instructions Recorded Confirmed sol.stocking,knee,reg,xlrg #12 ea 06/16/22 08/06/22 hydrochlorothiazide 25 mg tablet 25 mg PO DAILY #90 tabs 06/18/22 08/06/22 mupirocin 2 % topical ointment 1 applic topical TID #22 grams 07/14/22 08/06/22 ondansetron HCl 8 mg tablet 8 mg PO TID PRN nausea and 07/28/22 08/06/22 vomiting #60 tabs Previous Rx's Medication Instructions Recorded sol.stocking,knee,reg,xlrg #12 ea 06/16/22 hydrochlorothiazide 25 mg tablet 25 mg PO DAILY #90 tabs 06/18/22 mupirocin 2 % topical ointment 1 applic topical TID #22 grams 07/14/22 ondansetron HCl 8 mg tablet 8 mg PO TID PRN nausea and 07/28/22 vomiting #60 tabs Allergies Allergy/AdvReac Type Severity Reaction Status Date / Time amoxicillin [From Augmentin] AdvReac Intermediate vomits Verified 08/06/22 08:42 clavulanic acid AdvReac Intermediate vomits Verified 08/06/22 08:42 [From Augmentin] coconut Allergy Severe Anaphylaxsi Uncoded 08/06/22 08:42 s shrimp Allergy Severe Cardiac Uncoded 08/06/22 08:42 Dysrythmia General Stated Complaint: GenMedical ELIUD: 3 Review of Systems All systems reviewed & are unremarkable except as noted in HPI and below Constitutional Constitutional: Reports fever(s) Cardiovascular Cardiovascular: Denies chest pain, Reports leg edema (chronic) and Denies dyspnea Respiratory Respiratory: Denies cough and Denies dyspnea Gastrointestinal Gastrointestinal: Reports as per HPI, Reports loose stools, Reports nausea and Reports vomiting PFSH All Active Problems Cellulitis of right lower extremity (Acute) Essential hypertension (Acute) Obesity (Chronic) Abdominal pain (Acute) Sleep apnea (Acute) Umbilical hernia (Acute 08/29/13) Surgical History History of ankle surgery S/P appendectomy Social History Smoking/Tobacco Use Status: Former Tobacco Use tobacco type: cigarettes Quit Date: 05/02/22 Tobacco: How many years used: 21 Second Hand Exposure: Yes Smoking risk assessment performed?: Yes Alcohol Intake: current Alcohol Intake frequency: holidays/special occasions only Alcohol type: hard liquor Drug use: Never Substance use type: does not use Caregiver/Support person: No Household members: family Housing: house Pets and animals: No Do you think of yourself as: straight/heterosexual Current gender identity: male What is your relationship status?: never How often do you talk on the phone with friends or family?: three or more times per week How often do you get together with friends or relatives?: once per week How often do you attend christianity or mandaeism services?: decline to answer Do you belong to any clubs or organized social groups?: decline to answer Panel score (0-1 are the most socially isolated patients): 1 What type of physical activity do you participate in: none Shira/Jew: No preference Seatbelt use: always 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 Do you feel safe at home: Yes Do you feel safe in your relationship?: Yes Exam Const General: cooperative and no acute distress HENMT Head: normocephalic Mouth: mucous membranes dry Eyes Conjunctivae: normal conjunctivae Sclera: normal sclerae Neck Neck: trachea midline and supple Resp Auscultation: clear to auscultation bilaterally, no rales, no rhonchi and no wheezes Cardio Rate: tachycardic Rhythm: regular rhythm Heart Sounds: no murmurs GI Palpation: soft, not firm, no guarding, no masses and not rigid Skin General skin exam: crusts (rt lower leg) and erythema (forehead (patient notes chronic)) Neuro General: patient alert, patient awake, patient oriented x3 and tone normal Extrem General: no calf tenderness and edema Laterality: bilateral (trace) Psych Appearance: grossly normal Mental Status: mental status grossly normal Speech and Movement: speech and movement normal Course Vital Signs Vital signs: Vital Signs Temperature 37.0 C 08/06/22 08:29 Pulse 147 H 08/06/22 08:29 Respiratory Rate 20 08/06/22 08:29 Blood Pressure 146/79 H 08/06/22 08:29 Pulse Oximetry 93 08/06/22 08:29 Temperature 37.0 C 08/06/22 08:29 Temperature Source Temporal Artery Scan 08/06/22 08:29 Pulse 134 H 08/06/22 09:15 Pulse 135 H 08/06/22 09:15 Respiratory Rate 22 08/06/22 09:15 Respiratory Effort 08/06/22 08:36 Respiratory Depth Normal 08/06/22 08:36 Respiratory Pattern Normal 08/06/22 08:36 Blood Pressure 117/77 08/06/22 09:15 Blood Pressure Mean 87 08/06/22 09:15 Blood Pressure Position Sitting 08/06/22 08:29 Pulse Oximetry 90 L 08/06/22 09:15 Oxygen Delivery Method Nasal Cannula 08/06/22 08:29 Oxygen Flow Rate 3 08/06/22 08:29 Pain Level 7 08/06/22 08:29 Lab/Test Results Lab/Test Results: Laboratory Tests Range/Units 08/06/22 08/06/22 08/06/22 08:55 08:55 08:55 WBC (4.4-10.8) 10^3/uL 14.18 H RBC (4.36-5.78) 10^6/uL 6.40 H Hgb (13.5-17.5) g/dL 18.3 H Hct (40.0-50.0) % 54.9 H MCV (80-95) fL 86 MCH (27.0-33.0) pg 28.6 MCHC (32.0-36.0) % 33.3 RDW (11.8-14.1) % 12.9 Plt Count (130-400) 10^3/uL 332 MPV (8.0-11.0) fL 10.4 Immature Gran % 0.0 Neutrophils % 87.0 Band Neutrophils % 0 Lymphocytes % 4.0 Atypical Lymphs % 0 Monocytes % 8.0 Eosinophils % 0.0 Basophils % 0.0 Metamyelocytes % 1 Nucleated RBC % (0.0-0.3) % 0.0 Absolute Neutrophils (1.2-6.7) 10^3/uL 12.34 H Absolute Lymphocytes (1.2-3.4) 10^3/uL 0.57 L Absolute Monocytes (0.1-0.8) 10^3/uL 1.13 H Absolute Eosinophils (0.0-0.7) 10^3/uL 0.00 Absolute Basophils (0.0-0.2) 10^3/uL 0.00 RBC Morphology Normal Sodium (136-145) mmol/L 135 L Potassium (3.5-5.1) mmol/L 3.0 L Chloride (98-107) mmol/L 90 L Carbon Dioxide (21.0-32.0) mmol/L 37.1 H Anion Gap (3-11) mmol/L 7.9 BUN (7-18) mg/dL 28 H Creatinine (0.70-1.30) mg/dL 1.7 H Est GFR (CKD-EPI 2020) (mL/min/1.73m2) 51.62 Glucose (74-106) mg/dL 127 H Calcium (8.5-10.1) mg/dL 9.5 Magnesium (1.8-2.4) mg/dL 1.9 Total Bilirubin (0.2-1.0) mg/dL 1.6 H AST (15-37) U/L 32 ALT (16-63) U/L 112 H Alkaline Phosphatase (46-116) U/L 89 Troponin I (<or=60) ng/L 466 H* Total Protein (6.4-8.2) g/dL 9.1 H Albumin (3.4-5.0) g/dL 3.7 Lipase (73-393) U/L 100 Urine Color (Yellow) Urine Clarity (Clear) Urine pH (5-8) Ur Specific [place] (1.005-1.025) Urine Protein (Negative) mg/dL Urine Ketones (Negative) mg/dL Urine Blood (Negative) Urine Nitrite (Negative) Urine Bilirubin (Negative) Urine Urobilinogen (Up TO 0.2) EU/dL Ur Leukocyte Esterase (Negative) Urine Glucose (Negative) mg/dL COVID-19 Source Nasal/Nares Range/Units 08/06/22 09:37 WBC (4.4-10.8) 10^3/uL RBC (4.36-5.78) 10^6/uL Hgb (13.5-17.5) g/dL Hct (40.0-50.0) % MCV (80-95) fL MCH (27.0-33.0) pg MCHC (32.0-36.0) % RDW (11.8-14.1) % Plt Count (130-400) 10^3/uL MPV (8.0-11.0) fL Immature Gran % Neutrophils % Band Neutrophils % Lymphocytes % Atypical Lymphs % Monocytes % Eosinophils % Basophils % Metamyelocytes % Nucleated RBC % (0.0-0.3) % Absolute Neutrophils (1.2-6.7) 10^3/uL Absolute Lymphocytes (1.2-3.4) 10^3/uL Absolute Monocytes (0.1-0.8) 10^3/uL Absolute Eosinophils (0.0-0.7) 10^3/uL Absolute Basophils (0.0-0.2) 10^3/uL RBC Morphology Sodium (136-145) mmol/L Potassium (3.5-5.1) mmol/L Chloride (98-107) mmol/L Carbon Dioxide (21.0-32.0) mmol/L Anion Gap (3-11) mmol/L BUN (7-18) mg/dL Creatinine (0.70-1.30) mg/dL Est GFR (CKD-EPI 2020) (mL/min/1.73m2) Glucose (74-106) mg/dL Calcium (8.5-10.1) mg/dL Magnesium (1.8-2.4) mg/dL Total Bilirubin (0.2-1.0) mg/dL AST (15-37) U/L ALT (16-63) U/L Alkaline Phosphatase (46-116) U/L Troponin I (<or=60) ng/L Total Protein (6.4-8.2) g/dL Albumin (3.4-5.0) g/dL Lipase (73-393) U/L Urine Color (Yellow) [place] Urine Clarity (Clear) Cloudy Urine pH (5-8) 5.5 Ur Specific [place] (1.005-1.025) >= 1.030 H Urine Protein (Negative) mg/dL 100 H Urine Ketones (Negative) mg/dL 40 H Urine Blood (Negative) Trace-intact H Urine Nitrite (Negative) Positive H Urine Bilirubin (Negative) Large H Urine Urobilinogen (Up TO 0.2) EU/dL 1.0 H Ur Leukocyte Esterase (Negative) Negative Urine Glucose (Negative) mg/dL Negative COVID-19 Source Critical Care Time Critical Care Time Critical Care Time: Yes Total Critical Care Time: 65 Attestation: I spent greater than 65 minutes addressing this patient's immediate life threats. Please see MDM section of note. This time was spent engaged in work directly related to the patient's care, exclusive of separate procedures, and failure to initiate these interventions would have likely resulted in clinically significant or life threatening deterioration in the patient's condition.
[2022-08-06 10:01] LABS: Bacteria Many HPF (Negative); C & S Indicated? Yes; Casts Negative LPF (Negative); Crystals Negative HPF (Negative); Epithelial Cells Rare HPF (Negative); Mucus Heavy (Negative); Other Cells Negative (Negative)
[2022-08-06] MEDS: Omnipaque 350 MG/ML 100 ML BTL IJ (10:27)
[2022-08-06] MEDS: Normal Saline Flush 10 ML SYR IVP (10:28)
[2022-08-06] MEDS: cefTRIAXone 1 GM/50 ML BAG IVPB (10:37)
[2022-08-06] MEDS: POTASSIUM CHLORIDE 20 MEQ/100 ML BAG 50 MEQ IVPB (11:22)
[2022-08-06 11:33] LABS: COVID-19 PCR Negative (Negative)
[2022-08-06] MEDS: Ondansetron 4 MG/2 ML VIAL (12:45)
[2022-08-06 12:46] LABS: PTT Activated 26.1 sec (21.0-27.5)
--- NOTE | 2022-08-06 13:17 | NUR.NOTE ---
Nursing Note: OXYGEN VIA MASK STARTED W/GOOD EFFECT, SATS 88 TO 94%. ATTEMPT TO PLACE NG TUBE, PT UNABLE TO TOLERATE, DRY HEAVING AND REQUESTING IT REMOVED. PROVIDER AWARE OF PT INABILITY TO TOLERATE NG TUBE PLACEMENT.
[2022-08-06 14:02] LABS: Troponin I 1278 ng/L (<or=60)
--- NOTE | 2022-08-06 14:30 | RT.EKG_ITS ---
APPROVED REPORT Exam: Resting ECG Reason for Exam: rising trop Patient Location: E HR:128 bpm ECG Measurements Heart Rate 128 AXIS HI 240 P 66 QRSd 96 QRS -8 QT 301 T 2 QTc 438 Conclusion Sinus tachycardia...rate> 99 Prolonged HI interval...HI >200, V-rate 121-300 Left atrial enlargement...P, P'>60mS, <-0.15mV V1 Inferior infarct, old...Q >35mS, II III aVF no STEMI
[2022-08-06 16:45] LABS: Troponin I 1161 ng/L (<or=60)
--- NOTE | 2022-08-06 18:19 | W.EDPROG ---
Date of service: 08/06/22 Time of Service: 18:19 Medical Decision Making pt stable during my shift, still requiring oxygen to maintain saturations in the 90's. Given we do not have echo availability do not feel he is appropiate to stay here, [facility] availability and accepts for transfer, dr. Acevedo is the accepting provider Sign Out Sign Out Data: Sign Out Comment: Patient is here with multiple bilateral PEs as well as small bowel obstruction. Patient has received heparin bolus and infusion. Plan for transfer to [facility] awaiting bed availability. Patient is hypoxic and requiring supplemental oxygen. Plan for NG placement. Last updated by Jayjay Jeff MD at 08/06/22 12:59 Sign Out Comment: Pt signed out to Dr. Bravo at shift change with bed assignment and transfer to [facility] pending Last updated by Verónica Jeff MD at 08/06/22 15:35 Discharge Plan Disposition Patient Disposition: [facility] Condition: Serious Discharge Details Chief Complaint: GenMedical Clinical Impression: Hypoxia, Pulmonary emboli Primary Care Provider: Jocelyn Lopez ED Provider: Cornelio Bravo Home Meds and New Rx's Prescriptions: No Action hydrochlorothiazide 25 mg tablet 25 mg PO DAILY Qty: 90 0RF mupirocin 2 % ointment 1 applic topical TID Qty: 22 0RF ondansetron HCl 8 mg tablet 8 mg PO TID PRN (Reason: nausea and vomiting) Qty: 60 0RF (DME) sol.stocking,knee,reg,xlrg Misc See Rx Instructions .Route Qty: 12 0RF Rx Instructions: As directed
--- NOTE | 2022-08-06 18:31 | NUR.NOTE ---
Nursing Note: [place] [facility] BRADY FUNES. REQUEST CALL PRIOR TO PT LEAVING W/ANY CHANGES OR UPDATES AFTER 1829 TODAY.
[2022-08-06] MEDS: fentaNYL 100 MCG/2 ML VIAL IVP (18:45)
== END 2022-08-06 21:11 ==
PROVIDERS: Student in an Organized Health Care Education/Training Program; Emergency Provider Emergency Medicine; PCP Nurse Practitioner Family
DX: I26.99 Other pulmonary embolism without acute cor pulmonale (principal); K56.609 Unspecified intestinal obstruction, unspecified as to partial versus complete obstruction; R00.0 Tachycardia, unspecified; R09.02 Hypoxemia; E87.6 Hypokalemia; R82.79 Other abnormal findings on microbiological examination of urine; I11.9 Hypertensive heart disease without heart failure; Z86.16 Personal history of COVID-19; Z20.822 Contact with and (suspected) exposure to COVID-19
CPT/HCPCS: 36415; 71275; 74177; 80053; 83690; 87635; 93005; 96361; 96365; 96366; 96367; 96368; 96375; 96376; 99291; 81003; 81015; 83735; 84484; 85025; 85730; 87086; 93010; J0696; J2405; J3010; J3480; J3490